=== PATIENT | female | born 1975 | race Caucasian/White ===

== ENCOUNTER 2017-05-09 11:31 | Observation (INO) | payer OTHER ==
[~2017-05-09] VITALS: Ht 167.6 cm; Wt 79.6 kg
[2017-05-09] MEDS ORDERED: LAMO10TA PO (11:47)
[2017-05-09] MEDS ORDERED: ZONI25CA2 PO ×2 (11:47→16:12)
[2017-05-09] MEDS ORDERED: VENL37.52 PO ×2 (11:47→16:12)
[2017-05-09] MEDS ORDERED: LEVO75TA4 PO (11:47)
[2017-05-09] MEDS ORDERED: AMBI12.52 PO ×2 (11:47→16:12)
[2017-05-09] MEDS ORDERED: ASPIRIN 81 MG CHEW TABLET PO ONE (12:45)
[2017-05-09] MEDS ORDERED: LABETALOL HCL 100 MG/20 ML VIAL IV STA (13:04)
[2017-05-09 13:27] LABS: BASO % 0.6 % (0.0-1.0); EOS # 0.2 K/mm3 (0.0-0.50); EOS % 3.1 % (0.0-3.0); LARGE UNSTAINED CELL # 0.2 K/mm3 (0.0-0.4); LARGE UNSTAINED CELL % 2.1 % (0.0-4.0); LYMPH # 2.5 K/mm3 (1.5-4.5); LYMPH % 29.5 % (24.0-44.0); MEAN CORPUSCULAR HEMOGLOBIN 30.2 pg (27.0-33.0); MEAN CORPUSCULAR HGB CONC 33.2 g/dl (32.0-36.5); MEAN CORPUSCULAR VOLUME 91.1 fl (80.0-96.0); MONO # 0.5 K/mm3 (0.0-0.8); MONO % 5.6 % (0.0-5.0); NEUTROPHILS # 4.7 K/mm3 (1.8-7.7); NEUTROPHILS % 59.1 % (36.0-66.0); PLATELET COUNT, AUTOMATED 301 k/mm3 (150-450); RED CELL DISTRIBUTION WIDTH 13.3 % (11.5-14.5); WHITE BLOOD COUNT 7.9 K/mm3 (4.0-10.0)
[2017-05-09 13:37] LABS: INR 0.88
[2017-05-09] MEDS: NITROGLYCERIN 0.4 MG SUBL TABLET SL PRN ×3 (13:43→14:39)
[2017-05-09] MEDS ORDERED: HEPARIN SOD (PORCINE) 5000 UNITS/ML VIAL SC SCH (14:00)
--- NOTE | 2017-05-09 14:00 | REP ---
PA and lateral chest: The lung bertrand are clear. The cardiac size is normal The lorelei, mediastinum, and bony thorax are unremarkable. Impression: Negative PA and lateral chest. Signed by Darron Sanders MD 05/09/2017 01:51 P
[2017-05-09 14:03] LABS: ANION GAP 8 MEQ/L (8-16); BLOOD UREA NITROGEN 7 MG/DL (7-18); CARBON DIOXIDE LEVEL 25 MEQ/L (21-32); CHLORIDE LEVEL 112 MEQ/L (98-107); CREATININE FOR GFR 0.79 MG/DL (0.55-1.02); GLOMERULAR FILTRATION RATE > 60.0 (>58); GLUCOSE, FASTING 84 MG/DL (70-105); POTASSIUM SERUM 4.2 MEQ/L (3.5-5.1); SODIUM LEVEL 145 MEQ/L (136-145)
[2017-05-09] MEDS ORDERED: ISOVUE-370 76% 100ML VIAL (Q9967) As Ordered ONE (14:22)
--- NOTE | 2017-05-09 15:03 | REP ---
CT of the chest, CT pulmonary angiography: There are no comparison CT studies. There are no emboli in the pulmonary trunk or central pulmonary arteries. There are no emboli in the lobe or segment branches. There are no infiltrates, effusions or masses. There is no mediastinal, hilar or axillary adenopathy. The thoracic aorta is unremarkable. Cardiac size is normal. There is no pericardial effusion. Upper abdomen: The visualized portions of the liver, gallbladder, pancreas, spleen and adrenals are unremarkable. Impression: There are no pulmonary emboli. Negative CT study of the chest. Signed by Darron Sanders MD 05/09/2017 02:55 P
[2017-05-09] MEDS ORDERED: ACETAMINOPHEN TAB 650MG DOSE (2X325MG) PO PRN (16:00)
[2017-05-09] MEDS ORDERED: LEVO75TA34 PO (16:12)
[2017-05-09] MEDS ORDERED: IMIT6INJ SC (16:12)
[2017-05-09] MEDS ORDERED: FISH1000 PO (16:12)
[2017-05-09] MEDS ORDERED: VITA10002 PO (16:12)
[2017-05-09] MEDS ORDERED: RITA30CA PO (16:12)
[2017-05-09] MEDS ORDERED: VITMTA PO (16:12)
[2017-05-09] MEDS ORDERED: IMIT100T PO (16:12)
[2017-05-09] MEDS ORDERED: LAMI25TA PO (16:12)
[2017-05-09] MEDS ORDERED: NAPR500T3 PO (16:12)
[2017-05-09] MEDS ORDERED: MAGN1TAB25 PO (16:12)
[2017-05-09] MEDS ORDERED: HYDR-3713 PO (16:12)
[2017-05-09] MEDS ORDERED: VENL150C43 PO (16:12)
[2017-05-09] MEDS ORDERED: NAPROXEN 250 MG TAB PO PRN (16:30)
[2017-05-09] MEDS ORDERED: SUMAtriptan SUCCINATE 6 MG/0.5 ML VIAL SC PRN (16:30)
[2017-05-09 20:10] VITALS: BP 186/100
[2017-05-09 20:13] VITALS: BP 187/99
[2017-05-09] MEDS: NORCO, ANEXSIA 5/325MG TABLET (HYDROcodone/ACETAMINOPHEN) PO PRN (20:17)
[2017-05-09 20:27] VITALS: BP 187/99; PULSE 68
[2017-05-09] MEDS ORDERED: amLODIPine 5 MG TAB PO ONE (20:30)
--- NOTE | 2017-05-09 21:47 | HPE ---
DATE OF ADMISSION: 05/09/2017 CHIEF COMPLAINT: 42-year-old female coming in complaining of chest pain for 1 week that is pressure like. The patient was noted to be hypertensive. HISTORY OF PRESENT ILLNESS: This is a 42-year-old female with significant past medical history of having been treated for hypertension in the past with metoprolol 50 mg once a day, who was able to get off her medication 1 year ago due to controlled blood pressure, with comorbidities of migraine, hypothyroidism, depression, and insomnia, who presented complaining of chest pain for 1 week in duration. Patient states chest pain is centrally located radiating to the left side and the jaw, more pressure-like, associated with shortness of breath, worse with exertion, but still present at rest. Patient denies of any fever, chills, cough, sputum production, abdominal pain, diarrhea, or dysuria associated with this as well. Patient complained of headache but she has history of migraine and it is unchanged. Patient denies of any change in medication other than previously mentioned of stopping metoprolol due to her blood pressure normalizing. Denies of any blurry vision or dizziness. Patient states that eating does not change her chest pressure. Normally does not see any custom bike builder as an outpatient. Patient saturated well on room air, above 90% in the emergency room, but was noted to have severe blood pressure, 190/119, received three nitroglycerin and 10 mg of metoprolol in the emergency room with a good result. REVIEW OF SYSTEMS: Ten point review of systems negative other than those described in the history of present illness (HPI). PAST MEDICAL HISTORY: Significant for: 1. Hypertension. Currently off of all of her medication. 2. Hypothyroidism. 3. Migraine. 4. Depression. 5. Insomnia. SURGICAL HISTORY: Includes: 1. section. 2. Tonsillectomy. 3. Appendectomy. 4. She did have a kidney stone history as well status post stent, but that stent was removed. 5. History of lithotripsy in the past. SOCIAL HISTORY: Patient denies of smoking, drinking, or drug abuse. FAMILY MEDICAL HISTORY: Unknown due to being adopted. ALLERGIES: Patient has no known drug allergy. HOME MEDICATIONS: Are as follows: - acetaminophen/hydrocodone 5/325 one tablet every 6 hours as needed for pain - vitamin B12 1000 mcg by mouth daily - fish oil 1000 mg by mouth daily - Lamictal 50 mg by mouth daily - levothyroxine 75 mcg by mouth daily - multivitamin one tablet by mouth daily - naproxen 50 mg by mouth twice a day as needed for migraine - Imitrex 6 mg subcutaneous daily as needed for migraine - sumatriptan (Imitrex) 100 mg by mouth twice a day for migraine as well - Effexor XR 37.5 mg by mouth daily - Effexor XR 150 mg by mouth daily - Ambien 12.5 mg by mouth nightly - zonisamide 25 mg by mouth nightly PHYSICAL EXAMINATION: Temperature is 97.4, heart rate of 88, respiratory rate of 16, blood pressure is 177/132, saturating 100% on room air initially, but as per the emergency room patient had a blood pressure of 190/119, last heart rate of 56, blood pressure is 147/81, saturating 98% on room air, respiratory rate of 16. HEENT: Normocephalic. No trauma noted. Inspection of the eyes, nose, and throat is within normal. Pupils equal, round, and reactive to light and accommodation. Mucous is moist. Neck is supple. No tracheal deviation. CARDIAC: S1, S2, regular rate and rhythm. Pulses present. LUNGS: Equal air entry. Did not hear any wheezes, rales, or rhonchi. ABDOMEN: Soft, nontender. Bowel sounds present. LOWER EXTREMITIES: No significant pitting edema. Capillary refill present in all four extremities. SKIN: Is intact, warm to touch, afebrile. The patient is currently awake, alert and oriented times three. Cranial nerves grossly intact. Motor and sensory is intact. Normal mood and affect for current situation. DIAGNOSTIC STUDIES: Patient had an EKG showing a heart rate of 88, sinus, no ST elevation. DIAGNOSTIC LABORATORY STUDIES: Patient had a WBC, hemoglobin and hematocrit , and platelet all within normal. Basic metabolic profile is within normal except for chloride of 112. Cardiac enzymes so far have been negative. BNP is within normal. TSH is within normal as well. Coagulation studies: INR and PTT is within normal, PT of 12. Patient also had a chest x-ray, as per radiology, that showed negative posteroanterior (PA) and lateral chest. Patient also had a CT angiogram of the chest which showed, as per radiology, no pulmonary emboli. Negative CT study of the chest. ASSESSMENT AND PLAN: This is a 42-year-old female with significant past medical history of hypertension utilizing metoprolol once a day, but stopped using roughly a year ago due to normalization of her blood pressure, hypothyroidism, migraine, depression, chronic pain, insomnia, who presents complaining of chest pain for 1 week, noted to be hypertensive, admitted for hypertensive urgency. 1. Hypertensive urgency. Patient to be placed on telemetry. Will obtain serial cardiac enzymes. Urinalysis and urine culture for further evaluation. In addition, echocardiogram to further evaluate for any ventricular hypertrophy. Will utilize metoprolol with parameters and consult Dr. Lopez as this case was discussed with him in the emergency room. Further evaluation and recommendation by Dr. Lopez greatly appreciated. 2. Hypothyroidism. TSH is within normal, resume her levothyroxine. 3. Chronic pain and migraine. Resume home regimen including the lamotrigine, zonisamide, sumatriptan, naproxen as needed, and [place] as needed as well. 4. Depression. Resume venlafaxine home regimen. 5. Insomnia. Resume home Ambien regimen. 6. Deep venous thrombosis (DVT) prophylaxis.
[2017-05-09] MEDS: ZONISAMIDE 25 MG CAP (ZONEGRAN) PO SCH (22:31)
[2017-05-09] MEDS: HEPARIN SOD (PORCINE) 5000 UNITS/ML VIAL SC SCH (22:31)
[2017-05-09] MEDS: zolPIDEM CR 6.25MG TABLET (AMBIEN CR) PO SCH (22:31)
[2017-05-09 22:41] VITALS: BP_SYST 161; BP_DIAS 70; BP_DIAS 78
[2017-05-09 23:30] VITALS: PULSE 74
[2017-05-09 23:59] VITALS: BP 169/89
[2017-05-10] VITALS (10 sets, daily range): BP systolic 124–183; BP diastolic 84–115; PULSE 78–107
[2017-05-10] MEDS: LEVOTHYROXINE 75MCG TABLET (0.075MG) PO SCH (05:02)
[2017-05-10] MEDS: NORCO, ANEXSIA 5/325MG TABLET (HYDROcodone/ACETAMINOPHEN) PO PRN ×3 (05:02→21:52)
[2017-05-10] MEDS: HEPARIN SOD (PORCINE) 5000 UNITS/ML VIAL SC SCH ×3 (05:03→20:37)
[2017-05-10] MEDS: lamoTRIgine 25 MG TAB PO SCH (08:44)
[2017-05-10] MEDS: VENLAFAXINE **XR** 75MG CAPSULE PO SCH (08:44)
[2017-05-10] MEDS: CYANOCOBALAMIN 500 MCG TAB PO SCH (08:44)
[2017-05-10] MEDS: MULTIVITAMINS/MINERALS THERAP 1 TAB PO SCH (08:45)
[2017-05-10] MEDS: ASPIRIN 81 MG ENTERIC TAB PO SCH (08:45)
[2017-05-10] MEDS: METOPROLOL SUCC *XL* 25MG TAB (TopROL *XL*) PO SCH (08:46)
[2017-05-10] MEDS: VENLAFAXINE **XR** 37.5 MG CAPSULE PO SCH (08:52)
[2017-05-10] MEDS ORDERED: ONDANSETRON 4MG/2ML VIAL (J2405) As Ordered ONE (10:12)
[2017-05-10] MEDS ORDERED: ONDANSETRON 4MG/2ML VIAL (J2405) IV ONE (10:15)
[2017-05-10] MEDS ORDERED: ALPRAZolam 0.25 MG TAB PO PRN (10:30)
[2017-05-10] MEDS ORDERED: ONDANSETRON 4MG/2ML VIAL (J2405) IV PRN (10:30)
--- NOTE | 2017-05-10 10:33 | ECGEPIP ---
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
[2017-05-10] MEDS: SUMAtriptan SUCCINATE 25 MG TAB PO PRN (12:39)
[2017-05-10] MEDS ORDERED: amLODIPine 5 MG TAB PO ONE ×2 (12:45→16:30)
[2017-05-10] MEDS ORDERED: ATORVASTATIN 20 MG TAB PO ONE (15:15)
[2017-05-10] MEDS: NITROGLYCERIN 0.4 MG SUBL TABLET SL PRN ×2 (15:22→15:29)
--- NOTE | 2017-05-10 15:29 | IPNPDOC ---
Text Note Date of Service The patient was seen on 05/10/17. NOTE Subjective: Patient states she does have some residual left-sided chest pain that's pressure-like, 6 out of 10, radiating to the neck. States that chest pain initially started week ago with exertion while she was walking up a help. Pain is nonreproducible, occasionally pleuritic. Non-positional. Objective: Vitals: (see below) General: No acute distress, laying comfortably in bed. HEENT: Moist mucous membranes. Neck: No JVD or lymphadenopathy Cardiac: RRR, No murmurs Pulm: Clear to auscultation b/l. No wheezing, rhonchi Abd: NT/ND + BS Ext: No edema or cyanosis Labs (see below) Images: CTA chest on 05/09/17 negative for PE. EKG on 05/09/17 normal sinus rhythm within normal limits. Assessment/Plan 1. Hypertensive urgency- patient has been off of her blood pressure medications for the past week. Her blood pressure was better controlled this morning. We' ll continue the patient on amlodipine. 2. Atypical chest pain- Still has residual pain. States last hours at a time. Since admission, her EKG is normal sinus rhythm within normal limits. Her cardiac enzymes have been negative 3. She is continued on aspirin, beta julianna , statin. Does have anxiety which patient states precipitates the pain. I have spoken to Dr. Lopez, who recommends monitoring the patient for blood pressure remained stable, and her EKG remains unchanged, to discharge the patient for outpatient follow-up with him in the office. 3. Hypothyroidism continue Synthroid 4. Chronic pain/migraines- continue home meds 5. History of depression- continue home meds. The patient's psychiatrist has called the nursing staff and left a message. I tried to contact him however awaiting callback. 6. Insomnia- continue Ambien DVT prophy: Heparin subcutaneous VS,Fishbone, I+O VS, Fishbone, I+O Vital Signs Date Time Temp Pulse Resp B/P (MAP) Pulse Ox O2 Delivery O2 Flow Rate FiO2 05/10/17 13:19 72 177/100 05/10/17 12:00 97.5 18 98 Room Air I&O- Last 24 Hours up to 6 AM 05/10/17 06:00 Intake Total 180 ml Output Total 900 ml Balance -720 ml ABED,IRENE MD May 10, 2017 15:29
[2017-05-10 17:56] LABS: ANION GAP 9 MEQ/L (8-16); BLOOD UREA NITROGEN 7 MG/DL (7-18); CALCIUM LEVEL 9.4 MG/DL (8.5-10.1); CARBON DIOXIDE LEVEL 24 MEQ/L (21-32); CHLORIDE LEVEL 109 MEQ/L (98-107); CREATININE FOR GFR 0.82 MG/DL (0.55-1.02); GLOMERULAR FILTRATION RATE > 60.0 (>58); GLUCOSE, FASTING 91 MG/DL (70-105); MAGNESIUM LEVEL 2.2 MG/DL (1.8-2.4); SODIUM LEVEL 142 MEQ/L (136-145)
[2017-05-10] MEDS: zolPIDEM CR 6.25MG TABLET (AMBIEN CR) PO SCH (20:37)
[2017-05-10] MEDS: ZONISAMIDE 25 MG CAP (ZONEGRAN) PO SCH (20:38)
[2017-05-11 00:39] VITALS: BP 122/85
[2017-05-11] MEDS: NORCO, ANEXSIA 5/325MG TABLET (HYDROcodone/ACETAMINOPHEN) PO PRN (04:37)
[2017-05-11 05:03] VITALS: BP 137/92
[2017-05-11] MEDS: HEPARIN SOD (PORCINE) 5000 UNITS/ML VIAL SC SCH (06:30)
[2017-05-11] MEDS: LEVOTHYROXINE 75MCG TABLET (0.075MG) PO SCH (06:31)
--- NOTE | 2017-05-11 07:13 | ECHO ---
DATE OF PROCEDURE: 05/10/2017 REFERRING PHYSICIAN: Tayler Howard. INDICATION: Chest pain. HEIGHT: 66 inches. WEIGHT: 175 pounds. DIMENSION: IVS: 1.0 LV: 3.5 LVPW: 1.0 LA: 3.4 Aorta: 3.1 Ascending aorta: 2.8 RV: 2.2 LV systolic: 2.5 FINDINGS: The study is of acceptable technical quality. Left ventricle is normal size and systolic function with overall EF estimated at 60-65%. Right ventricle is also normal size and systolic function. Both atria appear normal. All four cardiac valves were reasonably well seen and appear normal. No pericardial effusion is noted. Inferior vena cava is normal size. Aortic root and aortic arch appear normal. Abdominal aorta was not visualized. Doppler interrogation reveals no aortic disease. There is trace mitral and trace tricuspid and pulmonic insufficiency. Estimated pulmonary artery pressure is within normal limits. Mitral inflow pattern and tissue Doppler imaging of mitral annulus reveal normal diastolic functional left ventricle. CONCLUSIONS: 1. Study is of acceptable technical quality. 2. Normal LV size, systolic and diastolic function. 3. No significant valvular disease. 4. Normal central venous pressure and likely normal pulmonary artery pressure. COMMENT: Subacute bacterial endocarditis (SBE) prophylaxis is not recommended. Essentially normal echocardiogram.
[2017-05-11 07:15] VITALS: BP 128/80
[2017-05-11 08:12] LABS: MEAN CORPUSCULAR HEMOGLOBIN 29.8 pg (27.0-33.0); MEAN CORPUSCULAR HGB CONC 32.5 g/dl (32.0-36.5); RED CELL DISTRIBUTION WIDTH 13.3 % (11.5-14.5); WHITE BLOOD COUNT 7.4 K/mm3 (4.0-10.0)
[2017-05-11 08:56] LABS: ANION GAP 9 MEQ/L (8-16); BLOOD UREA NITROGEN 11 MG/DL (7-18); CALCIUM LEVEL 8.7 MG/DL (8.5-10.1); CARBON DIOXIDE LEVEL 24 MEQ/L (21-32); CHLORIDE LEVEL 109 MEQ/L (98-107); GLOMERULAR FILTRATION RATE > 60.0 (>58); GLUCOSE, FASTING 102 MG/DL (70-105); MAGNESIUM LEVEL 2.3 MG/DL (1.8-2.4); POTASSIUM SERUM 3.7 MEQ/L (3.5-5.1); SODIUM LEVEL 142 MEQ/L (136-145)
[2017-05-11] MEDS ORDERED: amLODIPine 10 MG TAB PO SCH (09:00)
[2017-05-11] MEDS ORDERED: amLODIPine 5 MG TAB PO SCH (09:00)
[2017-05-11] MEDS ORDERED: ATORVASTATIN 20 MG TAB PO SCH (09:00)
[2017-05-11] MEDS: SUMAtriptan SUCCINATE 25 MG TAB PO PRN (09:14)
[2017-05-11] MEDS: VENLAFAXINE **XR** 37.5 MG CAPSULE PO SCH (09:26)
[2017-05-11] MEDS: ASPIRIN 81 MG ENTERIC TAB PO SCH (09:26)
[2017-05-11] MEDS: lamoTRIgine 25 MG TAB PO SCH (09:27)
[2017-05-11] MEDS: VENLAFAXINE **XR** 75MG CAPSULE PO SCH (09:27)
[2017-05-11] MEDS: CYANOCOBALAMIN 500 MCG TAB PO SCH (09:28)
[2017-05-11] MEDS: MULTIVITAMINS/MINERALS THERAP 1 TAB PO SCH (09:28)
[2017-05-11] MEDS: METOPROLOL SUCC *XL* 25MG TAB (TopROL *XL*) PO SCH (09:34)
--- NOTE | 2017-05-11 11:14 | REP ---
CT Head without contrast HISTORY: Headache COMPARISON: None There is no intraparenchymal hemorrhage, acute infarct, mass or midline shift. The ventricular system is normal in appearance. There is no extra cerebral collection. There is no fracture. The visualized sinuses are clear. IMPRESSION: There is no intracranial lesion. Signed by Narciso Adams MD 05/11/2017 11:04 A
[2017-05-11 11:59] LABS: CONTROL LINE HCG INT CTR LINE PRESENT
[2017-05-11 12:00] VITALS: BP 144/99
[2017-05-11] MEDS ORDERED: METO1TAB32 PO (12:08)
[2017-05-11] MEDS ORDERED: AMLO10TA2 PO (12:08)
[2017-05-11 12:19] VITALS: BP 144/99
[2017-05-11 13:00] VITALS: BP 157/99
--- NOTE | 2017-05-11 16:26 | DS.PDOC ---
Discharge Summary General Date of Admission May 09, 2017 at 16:28 Date of Discharge 05/11/17 Attending Physician: IRENE RUSSELL MD Discharge Summary PROCEDURES PERFORMED DURING STAY: None. ADMITTING/DISCHARGE DIAGNOSES: 1. Hypertensive urgency 2. Atypical chest pain 3. Chronic migraines 4. Depression/PTSD/anxiety 5. H/o Hypothyroidism COMPLICATIONS/CHIEF COMPLAINT: Chest Pain, Hypertensive Urgency. HISTORY OF PRESENT ILLNESS/HOSPITAL COURSE: This is a 42-year-old female past medical history of depression/PTSD/anxiety/ chronic migraines who presents complaining of chest pain. Patient notes that she's had a history of hypertension and had since been taken off her blood pressure medications a year ago as her blood pressure was stable outpatient. Patient was found to be in hypertensive urgency on presentation to the ED and has since had her blood pressure better controlled. Patient did have a few episodes of chest pain which she described as pressure-like, radiating to the neck. Patient is very anxious at times when her blood pressure was elevated. Over the course of hospitalization, patient's EKGs have been normal sinus rhythm within normal limits. Her cardiac troponins have been negative. I did discuss with Dr. Lopez recommended discharging the patient if her chest pain has resolved and he will be glad to follow-up with her soon in the clinic for further workup. During the course of his admission, patient was noted to be taking Ritalin which was prescribed by her psychiatrist for lethargy. This has since been discontinued and the patient should stay off of it as it does increase her risk of getting a stroke and heart attack. Patient also needs to to hold off on taking sumatriptan for her migraines until she follows up with her b2b sales manager and has workup for this atypical chest pain. It is likely that her chest pain is related to her uncontrolled hypertension. She will need to echocardiogram and stress test with her b2b sales manager. Patient's is hemodynamically stable. She did have an episode of migraines which typically originates in her cervical spine given her disc bulge. Patient has been following up closely with a spine surgeon as well as a neurologist, and should continue to do so. She has no neurologic deficits. Her chest pain at this time has resolved. Her headache is much improved. She has no neurologic deficits. DISCHARGE MEDICATIONS: Please see below. ALLERGIES: Please see below. PHYSICAL EXAMINATION ON DISCHARGE: Vitals: (see below) General: No acute distress, laying comfortably in bed. HEENT: Moist mucous membranes. Neck: No JVD or lymphadenopathy Cardiac: RRR, No murmurs Pulm: Clear to auscultation b/l. No wheezing, rhonchi Abd: NT/ND + BS Ext: No edema or cyanosis Neuro: Strength 5/5 BUE and BLE. CN 2-12 intact. F to N intact Negative pronator drift. Negative [place]. LABORATORY DATA: Please see below. IMAGING: CTA chest on 05/09/17 negative for PE. EKG on 05/09/17 normal sinus rhythm within normal limits. CT head without contrast 05/11/17 negative for acute findings. PROGNOSIS: Fair ACTIVITY: As tolerated. DIET: Low-sodium DISCHARGE PLAN/DISPOSITION: 01 Home, Self-Care. DISCHARGE INSTRUCTIONS: 1. Follow-up with PCP in 1-2 weeks. Patient will need to be referred to a b2b sales manager by their primary care physician. I did discuss case with Dr. Lopez who is aware of the patient and will be glad to see them soon outpatient. Patient also needs to follow-up with her psychiatrist. DISCHARGE CONDITION: Stable. TIME SPENT ON DISCHARGE: Greater than 30 minutes. Vital Signs/I&Os Vital Signs Date Time Temp Pulse Resp B/P (MAP) Pulse Ox O2 Delivery O2 Flow Rate FiO2 05/11/17 13:00 157/99 (118) 05/11/17 12:19 83 05/11/17 12:00 97.0 18 100 05/11/17 08:00 Room Air I&O- Last 24 Hours up to 6 AM 05/11/17 06:00 Intake Total 740 ml Output Total 1250 ml Balance -510 ml Laboratory Data Labs 24H Laboratory Tests 2 05/10/17 17:09: Anion Gap 9, Glomerular Filtration Rate > 60.0, Blood Urea Nitrogen 7, Creatinine 0.82, Sodium Level 142, Potassium Level 4.0, Chloride Level 109H, Carbon Dioxide Level 24, Calcium Level 9.4, Total Creatine Kinase 71, Magnesium Level 2.2, Creatine Kinase MB 1.0, Creatine Kinase MB Relative Index 1.40, Troponin I < 0.02 05/11/17 07:50: Anion Gap 9, Glomerular Filtration Rate > 60.0, Blood Urea Nitrogen 11#, Creatinine 0.70, Sodium Level 142, Potassium Level 3.7, Chloride Level 109H, Carbon Dioxide Level 24, Calcium Level 8.7, Total Creatine Kinase 56, Magnesium Level 2.3, Creatine Kinase MB 1.0, Creatine Kinase MB Relative Index 1.78, Troponin I < 0.02, Human Chorionic Gonadotropin, Qual NEGATIVE CBC/BMP Laboratory Tests 05/10/17 17:09 Calcium Level 9.4, Total Creatine Kinase 71 05/11/17 07:50 Calcium Level 8.7, Total Creatine Kinase 56, Red Blood Count 4.57, Mean Corpuscular Volume 92.0, Mean Corpuscular Hemoglobin 29.8, Mean Corpuscular Hemoglobin Concent 32.5, Red Cell Distribution Width 13.3 Microbiology Microbiology 05/09/17 Urine Culture, Received Pending Discharge Medications Scheduled Amlodipine Besylate (Amlodipine Besylate) 10 Mg Tab, 10 MG PO DAILY Cyanocobalamin (Vitamin B-12) 1,000 Mcg Tab, 1,000 MCG PO DAILY, (Reported) Fish Oil (Fish Oil) 1,000 Mg Cap, 1,000 MG PO DAILY, (Reported) Lamotrigine (Lamictal) 25 Mg Tab, 50 MG PO DAILY, (Reported) Levothyroxine Sodium (Levoxyl) 75 Mcg Tab, 75 MCG PO DAILY, (Reported) Magnesium Oxide (Magnesium) 400 Mg Tab, 400 MG PO DAILY, (Reported) Metoprolol Succinate (Metoprolol Succinate ER) 25 Mg Tab, 25 MG PO QAM Multivitamins *[facility] STOCKED* (Thera M Plus *[facility] STOCKED*) 1 Tab Tab, 1 TAB PO DAILY, (Reported) Venlafaxine HCl (Venlafaxine HCl ER) 37.5 Mg Cap, 37.5 MG PO DAILY, (Reported) 187.5MG TOTAL DAILY Venlafaxine Hydrochloride (Venlafaxine HCl ER) 150 Mg Cap, 150 MG PO DAILY, ( Reported) 187.5MG TOTAL DAILY Zolpidem Tartrate (Ambien Cr) 12.5 Mg Tab, 12.5 MG PO QHS, (Reported) Zonisamide (Zonisamide) 25 Mg Cap, 25 MG PO QHS, (Reported) Scheduled PRN Acetaminophen/Hydrocodone (Hydrocodone/Acetaminophen 5-325 mg) 1 Tab Tab, 1 TAB PO Q6H PRN for PAIN, (Reported) Naproxen (Naproxen) 500 Mg Tab, 500 MG PO BID PRN for MIGRAINE, (Reported) Sumatriptan Succinate (Imitrex) 6 Mg/0.5 Ml Inj, 6 MG SC DAILY PRN for MIGRAINE, (Reported) Allergies Coded Allergies: No Known Drug Allergy (Verified Allergy, Unknown, 05/09/17) IRENE RUSSELL MD May 11, 2017 16:26
--- NOTE | 2017-05-11 22:00 | ECGEPIP ---
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
--- NOTE | 2017-05-11 22:36 | ECGEPIP ---
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
--- NOTE | 2017-05-11 22:45 | ECGEPIP ---
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
[2017-07-22] MEDS ORDERED: AMBI12.52 PO (08:52)
== END 2017-05-11 14:09 | disposition home or self-care (01) ==
LOC: M ED 11:31 → M ED INP 16:28 → M PCU 19:57
PROVIDERS: ADMIT Internal Medicine; ATTEND Internal Medicine
DX: I16.0 Hypertensive urgency (principal); R07.89 Other chest pain; G43.709 Chronic migraine without aura, not intractable, without status migrainosus; F32.9 Major depressive disorder, single episode, unspecified; F43.10 Post-traumatic stress disorder, unspecified; F41.9 Anxiety disorder, unspecified; E03.9 Hypothyroidism, unspecified; R06.02 Shortness of breath; G89.29 Other chronic pain; M50.20 Other cervical disc displacement, unspecified cervical region; G47.09 Other insomnia; Z79.899 Other long term (current) drug therapy
CPT/HCPCS: 36415; 70450; 71020; 71275; 80048; 81001; 82550; 82553; 83735; 83880; 84443; 84703; 85025; 85027; 85610; 85730; 87088; 87186; 93005; 93041; 93306; 94760; 96372; 96374; 96375; 99285; J2405; Q9967

== ENCOUNTER → 2017-06-20 | Outpatient (REF) | payer OTHER ==
[~2017-06-20] MED LIST: AMBI12.52 PO; AMLO10TA2 PO; CLON0.5T; FISH1000 PO; FLUO20CA19 PO; HYDR-3713 PO; IMIT100T PO; IMIT6INJ SC; LAMI25TA PO; LAMO10TA PO; LAMO200T PO; LEVO75TA34 PO; LEVO75TA4 PO; LOSA25TA8 PO; MAGN1TAB25 PO; METO1TAB32 PO; NAPR500T3 PO; OMEP40CA2 PO; RITA30CA PO; VENL150C43 PO; VENL37.52 PO; VITA10002 PO; VITMTA PO; ZOFR4TAB3 PO; ZOLP5TAB PO; ZONI25CA2 PO
== END ==
LOC: M LAB REF 09:03
PROVIDERS: ATTEND Physician Assistant
DX: N39.0 Urinary tract infection, site not specified (principal)

== ENCOUNTER → 2017-07-07 | Outpatient (CLI) | payer OTHER ==
[2017-07-07 17:48] LABS: BASO # 0.1 10^3/uL (0.0-0.2); BASO % 0.5 % (0.0-1.0); EOS # 0.1 10^3/uL (0.0-0.50); IMMATURE GRANULOCYTE % 0.3 % (0-0); LYMPH # 2.5 10^3/uL (1.5-4.5); MEAN CORPUSCULAR HEMOGLOBIN 30.1 pg (27.0-33.0); MEAN CORPUSCULAR HGB CONC 32.1 g/dl (32.0-36.5); MEAN CORPUSCULAR VOLUME 93.6 fl (80.0-96.0); MONO % 11.3 % (0.0-5.0); NEUTROPHILS # 8.8 10^3/uL (1.8-7.7); NEUTROPHILS % 67.9 % (36.0-66.0); PLATELET COUNT, AUTOMATED 429 10^3/uL (150-450); RED CELL DISTRIBUTION WIDTH 13.6 % (11.5-14.5)
[2017-07-07 17:52] LABS: ADD MORPHOLOGY? NO; MONO # 1.5 10^3/uL (0.0-0.8)
[2017-07-07 18:00] LABS: ALKALINE PHOSPHATASE 79 U/L (45-117); ALT/SGPT 19 U/L (12-78); ANION GAP 12 MEQ/L (8-16); AST/SGOT 8 U/L (15-37); BLOOD UREA NITROGEN 8 MG/DL (7-18); CALCIUM LEVEL 9.2 MG/DL (8.5-10.1); CARBON DIOXIDE LEVEL 23 MEQ/L (21-32); CHLORIDE LEVEL 106 MEQ/L (98-107); CREATININE FOR GFR 0.82 MG/DL (0.55-1.02); GLOMERULAR FILTRATION RATE > 60.0 (>58); GLUCOSE, FASTING 83 MG/DL (70-105); POTASSIUM SERUM 4.2 MEQ/L (3.5-5.1); SODIUM LEVEL 141 MEQ/L (136-145)
[2017-07-07 18:01] LABS: ALBUMIN 3.2 GM/DL (3.2-5.2); BILIRUBIN,TOTAL 0.3 MG/DL (0.2-1.0); TOTAL PROTEIN 7.2 GM/DL (6.4-8.2)
== END ==
LOC: M WUC 14:57
PROVIDERS: ATTEND Physician Assistant
DX: N39.0 Urinary tract infection, site not specified (principal)

== ENCOUNTER 2017-07-09 17:31 | Day surgery (SDC) | payer OTHER ==
[~2017-07-09] VITALS: Ht 15.2 cm; Wt 87.7 kg
[~2017-07-09 17:31] MED LIST changes: -CLON0.5T; -FLUO20CA19 PO; -LAMO200T PO; -LOSA25TA8 PO; -OMEP40CA2 PO; -ZOFR4TAB3 PO; -ZOLP5TAB PO
[2017-07-09] MEDS ORDERED: FLUO20CA19 PO (17:41)
[2017-07-09] MEDS ORDERED: LOSA25TA8 PO (17:41)
[2017-07-09] MEDS ORDERED: CLON0.5T (17:41)
[2017-07-09] MEDS ORDERED: MORPHINE 4 MG/ML 1ML SYRINGE IV ONE (18:45)
[2017-07-09] MEDS ORDERED: ONDANSETRON 4MG/2ML VIAL (J2405) IV ONE ×2 (18:45→22:15)
[2017-07-09 19:23] LABS: BASO # 0.1 10^3/uL (0.0-0.2); BASO % 0.5 % (0.0-1.0); EOS # 0.3 10^3/uL (0.0-0.50); EOS % 2.7 % (0.0-3.0); IMMATURE GRANULOCYTE % 0.4 % (0-0); LYMPH # 3.2 10^3/uL (1.5-4.5); LYMPH % 29.1 % (24.0-44.0); MEAN CORPUSCULAR HEMOGLOBIN 30.1 pg (27.0-33.0); MEAN CORPUSCULAR HGB CONC 32.5 g/dl (32.0-36.5); MEAN CORPUSCULAR VOLUME 92.7 fl (80.0-96.0); MONO # 0.9 10^3/uL (0.0-0.8); MONO % 8.6 % (0.0-5.0); NEUTROPHILS # 6.4 10^3/uL (1.8-7.7); NEUTROPHILS % 58.7 % (36.0-66.0); PLATELET COUNT, AUTOMATED 433 10^3/uL (150-450); RED CELL DISTRIBUTION WIDTH 13.2 % (11.5-14.5); WHITE BLOOD COUNT 10.8 10^3/uL (4.0-10.0)
[2017-07-09 19:41] LABS: ANION GAP 9 MEQ/L (8-16); BLOOD UREA NITROGEN 10 MG/DL (7-18); CALCIUM LEVEL 8.6 MG/DL (8.5-10.1); CARBON DIOXIDE LEVEL 22 MEQ/L (21-32); CHLORIDE LEVEL 109 MEQ/L (98-107); GLOMERULAR FILTRATION RATE > 60.0 (>58); GLUCOSE, FASTING 82 MG/DL (70-105); POTASSIUM SERUM 3.8 MEQ/L (3.5-5.1); SODIUM LEVEL 140 MEQ/L (136-145)
[2017-07-09] MEDS ORDERED: HYDROmorphone HCL 1 MG/ML SYRINGE (J1170) IV ONE ×2 (20:15→22:15)
[2017-07-09] MEDS ORDERED: KETOROLAC 30 MG/ML VIAL (J1885) IV ONE (20:15)
[2017-07-09 21:15] LABS: CONTROL LINE UCG INT CTR LINE PRESENT
--- NOTE | 2017-07-09 21:50 | REPUSA ---
CT of the abdomen and pelvis without contrast Clinical statement: Pain. Technique: Multiple axial CT images were obtained from the base of the lungs to the floor of the pelv is utilizing 5 mm axial slices without administration of contrast. Coronal and sagittal reconstructio ns were also obtained. No comparison is available. Findings: Chest: The visualized lung bases are clear. Abdomen: The kidneys are normal in size bilaterally. There is moderate right-sided hydronephrosis and hydroureter. A 5 mm obstructing stone is seen in the mid right ureter. The liver, spleen, pancreas, gallbladder and adrenal glands are unremarkable. The aorta demonstrates normal caliber and contour. T here is no abdominal lymphadenopathy or ascites. Pelvis: The bowel is unremarkable, with no obstructive or inflammatory changes. The urinary bladder i s within normal limits. There is no pelvic lymphadenopathy or ascites. The other pelvic structures ap pear unremarkable. Bones: There are no suspicious osseous abnormalities seen. Impression: Moderate right-sided hydronephrosis and hydroureter caused by 5 mm obstructing stone in t he mid right ureter.
[2017-07-09] MEDS ORDERED: ZOLP5TAB PO (23:52)
[2017-07-09] MEDS ORDERED: METO1TAB32 PO (23:52)
[2017-07-09] MEDS ORDERED: LAMO200T PO (23:52)
[2017-07-09] MEDS ORDERED: AMLO10TA2 PO (23:52)
[2017-07-10] VITALS (7 sets, daily range): BP systolic 108–169; BP diastolic 62–90
[2017-07-10] MEDS ORDERED: HYDROmorphone HCL 1 MG/ML SYRINGE (J1170) As Ordered ONE (01:00)
[2017-07-10] MEDS ORDERED: HYDROmorphone HCL 1 MG/ML SYRINGE (J1170) IV ONE (01:00)
[2017-07-10] MEDS: ONDANSETRON 4MG/2ML VIAL (J2405) IV PRN ×2 (02:59→10:16)
[2017-07-10] MEDS: MORPHINE 2 MG/ML 1ML SYRINGE IV PRN ×2 (03:00→06:43)
[2017-07-10] MEDS: CIPROFLOXACIN 400 MG in APPROPRIATE DILUENT 1 EA IV SCH ×2 (03:00→14:30)
[2017-07-10] MEDS: D5W/0.45% SODIUM CHLORIDE 1,000 ML IV SCH ×2 (03:02→13:15)
[2017-07-10] MEDS: oxyCODONE 5MG TAB PO PRN ×2 (04:18→10:16)
[2017-07-10] MEDS ORDERED: LEVOTHYROXINE 75MCG TABLET (0.075MG) PO SCH (06:00)
[2017-07-10] MEDS ORDERED: METOPROLOL SUCC *XL* 25MG TAB (TopROL *XL*) PO SCH (09:00)
[2017-07-10] MEDS ORDERED: amLODIPine 10 MG TAB PO SCH (09:00)
[2017-07-10] MEDS ORDERED: FLUoxetine 20 MG CAP PO SCH (09:00)
[2017-07-10] MEDS ORDERED: LOSARTAN 25 MG TAB PO SCH (09:00)
[2017-07-10] MEDS ORDERED: lamoTRIgine 25 MG TAB PO SCH (09:00)
[2017-07-10] MEDS ORDERED: PROMETHAZINE INJ 25 MG/ML VIAL (J2550) IV PRN (12:30)
[2017-07-10] MEDS ORDERED: KETOROLAC 30 MG/ML VIAL (J1885) IV ONE (12:30)
[2017-07-10] MEDS ORDERED: MIDAZOLAM INJ 2 MG/2 ML VIAL (J2250) As Ordered ONE (14:06)
[2017-07-10] MEDS ORDERED: fentaNYL 100 MCG/2 ML INJECTION (J3010) As Ordered ONE (14:06)
[2017-07-10] MEDS ORDERED: CONRAY-60 60% 50ML VIAL (Q9961) As Ordered ONE (14:08)
[2017-07-10] MEDS ORDERED: CIPROFLOXACIN/D5W 400 MG/200 ML BAG (J0744) As Ordered ONE (14:22)
--- NOTE | 2017-07-10 14:44 | HPEPDOC ---
General Date of Admission 07/09/17 Attending Physician: MELINDA FLOWER MD Chief Complaint The patient is a 42-year-old female admitted with a reason for visit of R Ureteral Stone. History of Present Illness The patient is a 42-year-old female who presented to [facility] ER c/o right flank pain. A CT scan was performed and demonstrated A 5 mm obstructing stone is seen in the mid right ureter. The physicians in the ER attempted to get the pain under control with analgesics in hopes of discharging Mrs. Lozoya for a trial of passage with medical expulsive therapy. However, they were unable to control her pain, even using IV medications. In addition, Mrs. Lozoya was having notable N/V. The urology service was consulted and a decision was made to admit her for same day care with planned surgical intervention for the stone. Home Medications Scheduled Amlodipine Besylate (Amlodipine Besylate) 10 Mg Tab, 10 MG PO DAILY, (Reported) Cyanocobalamin (Vitamin B-12) 1,000 Mcg Tab, 1,000 MCG PO DAILY, (Reported) Fluoxetine Hcl (Fluoxetine HCl) 20 Mg Cap, 20 MG PO DAILY, (Reported) Lamotrigine (Lamotrigine) 200 Mg Tab, 200 MG PO DAILY, (Reported) Levothyroxine Sodium (Levoxyl) 75 Mcg Tab, 75 MCG PO QAM, (Reported) Losartan Potassium (Losartan Potassium) 25 Mg Tab, 25 MG PO DAILY, (Reported) Magnesium Oxide (Magnesium) 400 Mg Tab, 400 MG PO DAILY, (Reported) Metoprolol Succinate (Metoprolol Succinate ER) 25 Mg Tab, 25 MG PO DAILY, ( Reported) Multivitamins *[facility] STOCKED* (Thera M Plus *[facility] STOCKED*) 1 Tab Tab, 1 TAB PO DAILY, (Reported) Zolpidem Tartrate (Zolpidem Tartrate) 5 Mg Tab, 5 MG PO QHS, (Reported) Zonisamide (Zonisamide) 25 Mg Cap, 25 MG PO QHS, (Reported) Scheduled PRN Sumatriptan Succinate (Imitrex) 6 Mg/0.5 Ml Inj, 1 INJ SC DAILY PRN for MIGRAINE , (Reported) Allergies Coded Allergies: Pregabalin (Verified Allergy, Intermediate, 07/09/17) Past Medical History Medical History 1. Hypertension. Currently off of all of her medication. 2. Hypothyroidism. 3. Migraine. 4. Depression. 5. Insomnia. Surgical History 1. section. 2. Tonsillectomy. 3. Appendectomy. 4. She did have a kidney stone history as well status post stent, but that stent was removed. 5. History of lithotripsy in the past. Family History Significant Family History: Unable to assess Social History * Smoker: Denies Alcohol: Denies Drugs: denies Review of Symptoms Constitutional: Denies: Chills, Fever, Night Sweats Eyes: Denies: Pain, Vision change ENT: Denies: Head Aches, Ear Pain, Dysphagia Skin: Denies: Rash, Lesions, Breakdown Pulmonary: Denies: Dyspnea, Cough Cardiovascular: Denies: Chest Pain, Palpitations, Orthopnea, Paroxysmal Noc. Dyspnea, Lt Headedness Gastrointestinal: Reports: Nausea, Vomiting, Denies: Abdominal Pain, Diarrhea Genitourinary: Denies: Dysuria, Frequency, Incontinence, Retention Hematologic: Denies: Bruising, Bleeding Excessively Musculoskeletal: Denies: Neck Pain, Back Pain, Joint Pain, Muscle Pain, Spasms Neurological: Denies: Weakness, Numbness, Change in speech, Confusion Psych: Reports: Mood Normal, Denies: Depression, Memory Issues Physical Examination General Exam: Positive: Alert, No Acute Distress Eye Exam: Positive: PERRLA, Conjunctiva & lids normal, EOMI, Negative: Sclera icteric ENT Exam: Positive: Atraumatic, Mucous membr. moist/pink, Pharynx Normal Neck Exam: Positive: Supple, Negative: JVD, thyromegaly Chest Exam: Positive: Clear to auscultation, Normal air movement Heart Exam: Positive: Rate Normal, Regular Rhythm, Normal S1, Normal S2, Negative: Murmurs, Rubs Telemetry: Positive: No significant arrhythmia Abdomen Exam: Positive: Normal bowel sounds, Soft, Tenderness, Negative: Hepatospenomegaly Extremity Exam: Positive: Normal pulses, Negative: Clubbing, Cyanosis, Edema Skin Exam: Positive: Nl turgor and temperature, Negative: Breakdown, Lesion Neuro Exam: Positive: Normal Gait, Normal Speech, Cranial Nerves 3-12 NL, Reflexes 2+ Psych Exam: Positive: Mental status NL, Mood NL, Oriented x 3 Other physical findings right CVAT Vital Signs Vital Signs Date Time Temp Pulse Resp B/P (MAP) Pulse Ox O2 Delivery O2 Flow Rate FiO2 07/10/17 11:12 97 140/80 07/10/17 10:46 98.0 20 98 Room Air Laboratory Data Labs 24H Laboratory Tests 2 07/09/17 18:53: Immature Granulocyte % (Auto) 0.4H, White Blood Count 10.8H, Red Blood Count 4.12, Hemoglobin 12.4, Hematocrit 38.2, Mean Corpuscular Volume 92.7, Mean Corpuscular Hemoglobin 30.1, Mean Corpuscular Hemoglobin Concent 32.5, Red Cell Distribution Width 13.2, Platelet Count 433, Neutrophils (%) (Auto) 58.7, Lymphocytes (%) (Auto) 29.1, Monocytes (%) (Auto) 8.6H, Eosinophils (%) (Auto) 2.7, Basophils (%) (Auto) 0.5, Neutrophils # (Auto) 6.4, Lymphocytes # (Auto) 3.2, Monocytes # (Auto) 0.9H, Eosinophils # (Auto) 0.3, Basophils # (Auto) 0.1, Immature Granulocyte # (Auto) 0.0, Nucleated Red Blood Cells % (auto) 0.0, Urine Appearance HAZY, Urine Color YELLOW, Urine pH 5.0, Urine Specific [place] 1.013, Urine Protein NEGATIVE, Urine Glucose (UA) NEGATIVE, Urine Ketones NEGATIVE, Urine Urobilinogen 0.2, Urine Bilirubin NEGATIVE, Urine Leukocyte Esterase NEGATIVE, Urine Blood NEGATIVE, Urine Nitrite NEGATIVE, Urine WBC (Auto ) 15H, Urine RBC (Auto) 8H, Urine Hyaline Casts (Auto) 0, Urine Bacteria (Auto) 1+H, Urine Squamous Epithelial Cells 10, Urine Mucus (Auto) SMALL, Urine Sperm ( Auto) , Urine Test NEGATIVE, Anion Gap 9, Glomerular Filtration Rate > 60.0, Blood Urea Nitrogen 10, Creatinine 0.80, Sodium Level 140, Potassium Level 3.8, Chloride Level 109H, Carbon Dioxide Level 22, Calcium Level 8.6, C- Reactive Protein, Quantitative 6.91H CBC/BMP Laboratory Tests 07/09/17 18:53 Red Blood Count 4.12, Mean Corpuscular Volume 92.7, Mean Corpuscular Hemoglobin 30.1, Mean Corpuscular Hemoglobin Concent 32.5, Red Cell Distribution Width 13.2 , Neutrophils (%) (Auto) 58.7, Lymphocytes (%) (Auto) 29.1, Monocytes (%) (Auto ) 8.6 H, Eosinophils (%) (Auto) 2.7, Basophils (%) (Auto) 0.5, Neutrophils # ( Auto) 6.4, Lymphocytes # (Auto) 3.2, Monocytes # (Auto) 0.9 H, Eosinophils # ( Auto) 0.3, Basophils # (Auto) 0.1, Calcium Level 8.6 Microbiology Microbiology 07/09/17 Urine Culture - Final, Complete Assessment/Plan Right ureteral stone causing severe flank pain, N/V refractory to pain medications Plan / VTE VTE Prophylaxis Ordered?: Yes VTE Exclusion Pharmacological: Bleeding Risk Plan Plan 1. Admit for same day care. 2. Pain control with IV pain medications. 3. Anti-emetics. 4. To OR, next available for cystoscopy, right ureteral stent placement and possible right ureteroscopy with laser lithotripsy. 5. We will plan to discharge pt to home after a period of observation after the procedure. MELINDA FLOWER MD Jul 10, 2017 14:44
[2017-07-10] MEDS ORDERED: ONDANSETRON 4MG/2ML VIAL (J2405) As Ordered ONE (15:08)
[2017-07-10] MEDS ORDERED: LIDOCAINE 2% INJ 100 MG/5 ML SDV (FOR ANES.) As Ordered ONE (15:08)
[2017-07-10] MEDS ORDERED: PROPOFOL 200 MG/20 ML VIAL As Ordered ONE (15:08)
[2017-07-10] MEDS ORDERED: PERCOCET 5MG/325MG TAB As Ordered ONE (15:41)
[2017-07-10] MEDS ORDERED: fentaNYL 100 MCG/2 ML INJECTION (J3010) IV PRN (15:45)
[2017-07-10] MEDS ORDERED: LR 1,000 ML IV SCH (15:45)
[2017-07-10] MEDS ORDERED: ONDANSETRON 4MG/2ML VIAL (J2405) IV PRN (15:45)
[2017-07-10] MEDS ORDERED: PERCOCET 5MG/325MG TAB PO PRN (15:45)
--- NOTE | 2017-07-10 15:54 | ROOPDOC ---
[facility] Report Of Operation Report of Operation DATE OF PROCEDURE: 07/10/17 PREPROCEDURE DIAGNOSES: Proximal right ureteral stone. POSTPROCEDURE DIAGNOSES: Proximal right ureteral stone. PROCEDURE: Cystoscopy, right retrograde pyelogram, right ureteroscopy, right ureteral stent placement. SURGEON: Melinda Sutton MD GEOPHYSICAL PROSPECTING PERMIT AGENT: gem technician ANESTHESIA: Gen. endotracheal. ESTIMATED BLOOD LOSS: Minimal COMPLICATIONS: None. REMARKS: Proximal right ureteral could not be accessed ureteroscopically at this time. JUSTIFICATION FOR PROCEDURE: This patient is a 42-year-old female who presented to the [facility] emergency department and was found to have an obstructing stone in her proximal right ureter. The urology service was consulted. The patient was counseled on the various treatment options going forward including a trial of passage with medical expulsive therapy, as well as various surgical modalities. The patient elected to proceed to the above described procedures. Full written informed consent was obtained. DESCRIPTION OF PROCEDURE: After being evaluated by the anesthesia service the patient was transferred to the operating room. General endotracheal anesthesia was initiated and the patient was placed into the dorsal lithotomy position. Timeout was performed. She had already received ciprofloxacin as surgical prophylaxis. Her genitalia was prepped and draped in the usual sterile manner. We began the procedure by advancing a 22.5 Italian rigid cystoscope through the urethra into the bladder. The urethra and interior of the bladder appeared generally normal. Bilateral ureteral orifices were visualized and orthotopic position. A 5 Italian open-ended ureteral catheter was advanced through the cystoscope and used to cannulate the right ureteral orifice. Contrast was then injected through the ureteral catheter and up the right ureter in a retrograde manner. Simultaneous fluoroscopic imaging demonstrated a possible filling defect in the proximal right ureter corresponding to the known stone. A sensor wire was then advanced through the ureteral catheter and up into the right kidney. The catheter was backed off the wire leaving the wire in place. We then exchanged the rigid cystoscope for a semirigid ureteroscope. The semirigid ureteroscope was then advanced into the bladder and up into the right ureter using the safety wire as a visual guide. The distal ureter was rather narrow but it was possible to advance several centimeters up the ureter. As we began approaching the mid-ureter, however, it became too tight to proceed further. We attempted advancing a second wire through the scope and up the ureter to help open the lumen and allow for further retrograde progress, but ultimately this only allowed us to move an additional centimeter or two. At this point it appeared that attempting to push further up would risk ureteral damage and so we decided to cease further attempts. The ureteroscope was exchanged back for the cystoscope which was backloaded over the safety wire and advanced into the bladder. A 6 Italian multilength ureteral stent was then advanced over the wire through the cystoscope and up the right ureter under fluoroscopic guidance. When it was in good position the wire was removed. The stent was confirmed to be properly placed. The bladder was drained. The patient was placed back into the supine position. Anesthesia was discontinued and the patient was transferred to the postoperative care unit. She had been hemodynamically stable throughout the entire case. PLAN: The patient will be discharged home today. She has been instructed to follow up with Dr. Pineda or Dr. Carrillo in the next 1-2 weeks to plan for a definitive procedure to treat the stone. She has been given prescriptions for Cipro to be taken as prophylactic antibiotics for the next several days, as well as oxycodone in case she has further pain. MELINDA SUTTON MD Jul 10, 2017 15:54
[2017-07-10] MEDS ORDERED: ZONISAMIDE 25 MG CAP (ZONEGRAN) PO SCH (21:00)
--- NOTE | 2017-07-11 07:49 | REP ---
4 seconds of fluoroscopy time was provided to Dr. Sutton during retrograde pyelogram and right-sided double J stent catheter placement. There is a double J stent catheter seen, the proximal portion of which is in the right renal pelvic region and the distal in the urinary bladder on the right. Three images were obtained. Signed by Roger Parker DO 07/11/2017 12:09 P
[2017-07-22] MEDS ORDERED: AMBI12.52 PO (08:52)
== END 2017-07-10 19:15 | disposition home or self-care (01) ==
LOC: M ED 17:31 → M SDC 23:30 → M PED 07-10 02:10 → M SDC 07-10 19:15
PROVIDERS: ATTEND Urology Pediatric Urology
DX: N20.1 Calculus of ureter (principal); I10 Essential (primary) hypertension; E03.9 Hypothyroidism, unspecified; R06.83 Snoring; F43.10 Post-traumatic stress disorder, unspecified; G43.909 Migraine, unspecified, not intractable, without status migrainosus; F32.9 Major depressive disorder, single episode, unspecified; G47.00 Insomnia, unspecified; Z88.5 Allergy status to narcotic agent; Z88.8 Allergy status to other drugs, medicaments and biological substances; Z79.899 Other long term (current) drug therapy
CPT/HCPCS: 52332; 74176; 74420; 80048; 81001; 84703; 85025; 86140; 87086; 96374; 96375; 96376; 99284; C1769; C2617; J0744; J1170; J1885; J2250; J2405; J3010; Q9961

== ENCOUNTER → 2017-07-15 | Outpatient (REF) | payer OTHER ==
[~2017-07-15] MED LIST changes: +CLON0.5T; +FLUO20CA19 PO; +LAMO200T PO; +LOSA25TA8 PO; +OMEP40CA2 PO; +ZOFR4TAB3 PO; +ZOLP5TAB PO
== END ==
LOC: M SMT 17:04
PROVIDERS: ATTEND Nurse Practitioner Women's Health
DX: N13.2 Hydronephrosis with renal and ureteral calculous obstruction (principal)

== ENCOUNTER → 2017-07-22 | Outpatient (CLI) | payer OTHER ==
[2017-07-22 13:24] LABS: CONTROL LINE HCG INT CTR LINE PRESENT
[2017-07-22 13:25] LABS: MEAN CORPUSCULAR HEMOGLOBIN 29.9 pg (27.0-33.0); MEAN CORPUSCULAR VOLUME 93.4 fl (80.0-96.0); PLATELET COUNT, AUTOMATED 407 10^3/uL (150-450); RED CELL DISTRIBUTION WIDTH 13.9 % (11.5-14.5); WHITE BLOOD COUNT 8.9 10^3/uL (4.0-10.0)
[2017-07-22 13:38] LABS: INR 0.99
[2017-07-22 15:04] LABS: ANION GAP 11 MEQ/L (8-16); BLOOD UREA NITROGEN 9 MG/DL (7-18); CALCIUM LEVEL 9.1 MG/DL (8.5-10.1); CARBON DIOXIDE LEVEL 21 MEQ/L (21-32); CHLORIDE LEVEL 109 MEQ/L (98-107); CREATININE FOR GFR 0.86 MG/DL (0.55-1.02); GLOMERULAR FILTRATION RATE > 60.0 (>58); GLUCOSE, FASTING 87 MG/DL (70-105); POTASSIUM SERUM 3.9 MEQ/L (3.5-5.1); SODIUM LEVEL 141 MEQ/L (136-145)
== END ==
LOC: M SMT 09:07
PROVIDERS: ATTEND Nurse Practitioner Women's Health
DX: Z01.818 Encounter for other preprocedural examination (principal); N13.2 Hydronephrosis with renal and ureteral calculous obstruction

== ENCOUNTER 2017-07-25 11:13 | Emergency (ER) | payer OTHER ==
[~2017-07-25] VITALS: Ht 167.6 cm; Wt 84.1 kg
[~2017-07-25 11:13] MED LIST changes: -OMEP40CA2 PO; -ZOFR4TAB3 PO
[2017-07-25] MEDS ORDERED: ISOVUE-370 76% 100ML VIAL (Q9967) As Ordered ONE (12:22)
[2017-07-25] MEDS ORDERED: PANTOPRAZOLE 40MG INJ (PROTONIX) (C9113) IV ONE (12:30)
[2017-07-25] MEDS ORDERED: ONDANSETRON 4MG/2ML VIAL (J2405) IV ONE (12:30)
[2017-07-25] MEDS ORDERED: NS 500 ML IV ONE (12:30)
[2017-07-25 12:34] LABS: BASO # 0.1 10^3/uL (0.0-0.2); BASO % 0.5 % (0.0-1.0); EOS # 0.3 10^3/uL (0.0-0.50); EOS % 2.8 % (0.0-3.0); IMMATURE GRANULOCYTE % 0.3 % (0-0); LYMPH # 2.8 10^3/uL (1.5-4.5); LYMPH % 26.9 % (24.0-44.0); MEAN CORPUSCULAR HEMOGLOBIN 30.5 pg (27.0-33.0); MEAN CORPUSCULAR HGB CONC 32.8 g/dl (32.0-36.5); MEAN CORPUSCULAR VOLUME 92.8 fl (80.0-96.0); MONO # 0.6 10^3/uL (0.0-0.8); NEUTROPHILS # 6.6 10^3/uL (1.8-7.7); NEUTROPHILS % 63.5 % (36.0-66.0); PLATELET COUNT, AUTOMATED 354 10^3/uL (150-450); RED CELL DISTRIBUTION WIDTH 13.8 % (11.5-14.5); WHITE BLOOD COUNT 10.3 10^3/uL (4.0-10.0)
[2017-07-25 12:43] LABS: ALBUMIN 3.4 GM/DL (3.2-5.2); ALBUMIN/GLOBULIN RATIO 0.94 (1.00-1.93); ALKALINE PHOSPHATASE 83 U/L (45-117); ALT/SGPT 17 U/L (12-78); ANION GAP 8 MEQ/L (8-16); AST/SGOT 11 U/L (15-37); BILIRUBIN,DIRECT < 0.1 MG/DL (0.0-0.2); BILIRUBIN,TOTAL 0.4 MG/DL (0.2-1.0); BLOOD UREA NITROGEN 10 MG/DL (7-18); CALCIUM LEVEL 8.9 MG/DL (8.5-10.1); CARBON DIOXIDE LEVEL 25 MEQ/L (21-32); CHLORIDE LEVEL 109 MEQ/L (98-107); CREATININE FOR GFR 0.84 MG/DL (0.55-1.02); GLOMERULAR FILTRATION RATE > 60.0 (>58); GLUCOSE, FASTING 92 MG/DL (70-105); POTASSIUM SERUM 3.8 MEQ/L (3.5-5.1); SODIUM LEVEL 142 MEQ/L (136-145)
--- NOTE | 2017-07-25 12:50 | REP ---
CT of the chest with IV contrast: Comparison is 05/09/2017. The there is no pneumothorax. There is no pneumomediastinum. There is no endotracheal tube. There is no nasogastric tube. There are no pleural effusions. There are no infiltrates. There is no mediastinal or hilar adenopathy. No axillary adenopathy. There are no emboli in the central pulmonary arteries are the pulmonary lobe or segment branches. Thoracic aorta is unremarkable. Cardiac size normal. There is no pericardial effusion. In the upper abdomen there is no perigastric phlegmon or pneumoperitoneum. The visualized portions of the liver, pancreas and spleen are unremarkable. Impression: Essentially negative CT study of the chest. Signed by Darron Sanders MD 07/25/2017 12:42 P
[2017-07-25] MEDS ORDERED: GI COCKTAIL 50ML BTL(HYOSCYAMINE/MAALOX/LIDOCAINE VISCOUS)(1:3:1) PO ONE (13:30)
[2017-07-25] MEDS ORDERED: OMEP40CA2 PO (13:57)
[2017-07-25] MEDS ORDERED: ZOFR4TAB3 PO (13:57)
[2017-07-25 14:10] VITALS: BP 161/102
--- NOTE | 2017-07-25 21:13 | ECGEPIP ---
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
== END 2017-07-25 14:26 | disposition home or self-care (01) ==
LOC: M ED 11:13
DX: R11.0 Nausea (principal); T39.395A Adverse effect of other nonsteroidal anti-inflammatory drugs [NSAID], initial encounter; I10 Essential (primary) hypertension; E03.9 Hypothyroidism, unspecified
CPT/HCPCS: 71275; 80048; 80076; 82550; 82553; 83690; 85025; 93005; 93041; 96374; 96375; 99284; C9113; J2405; Q9967

== ENCOUNTER 2017-07-28 11:02 | Day surgery (SDC) | payer OTHER ==
[~2017-07-28] VITALS: Ht 167.6 cm; Wt 92.7 kg
[~2017-07-28 11:02] MED LIST changes: +OMEP40CA2 PO; +ZOFR4TAB3 PO
[2017-07-28] MEDS ORDERED: LR 1,000 ML IV ONE (11:30)
[2017-07-28] MEDS ORDERED: LIDOCAINE 1% MDV 20ML VIAL SQ PRN (11:30)
[2017-07-28 12:12] LABS: CONTROL LINE UCG INT CTR LINE PRESENT
[2017-07-28] MEDS ORDERED: CONRAY-60 60% 50ML VIAL (Q9961) As Ordered ONE (13:55)
[2017-07-28] MEDS ORDERED: fentaNYL 100 MCG/2 ML INJECTION (J3010) As Ordered ONE (14:56)
[2017-07-28] MEDS ORDERED: MIDAZOLAM INJ 2 MG/2 ML VIAL (J2250) As Ordered ONE (14:57)
[2017-07-28] MEDS ORDERED: PERCOCET 5MG/325MG TAB As Ordered ONE (15:11)
--- NOTE | 2017-07-28 15:18 | REP ---
Retrograde pyelogram: Three views. History: Stone. 13 seconds of fluoroscopy time is reported. Findings: A sequence of three last image hold fluoroscopic spot radiographs of the right abdomen document right ureteral cannulation, contrast injection, and double pigtail ureteral stent placement. Signed by Lukas Mejia MD 07/28/2017 04:13 P
[2017-07-28] MEDS ORDERED: PERCOCET 5MG/325MG TAB PO PRN (15:30)
[2017-07-28] MEDS ORDERED: ACETAMINOPHEN TAB 650MG DOSE (2X325MG) PO PRN (15:30)
[2017-07-28 16:20] VITALS: BP 146/88
--- NOTE | 2017-07-29 20:37 | RO ---
DATE OF PROCEDURE: 07/28/2017 PREPROCEDURE DIAGNOSIS: Obstructing right ureteral stone. POSTPROCEDURE DIAGNOSIS: Obstructing right ureteral stone. PROCEDURE: Cystoscopy, right ureteroscopy with laser lithotripsy and basket extraction of stones, right retrograde pyelogram with intraoperative interpretation of images, right ureteral stent exchange. SURGEON: Dr. Hussain Carrillo WAFER LINE WORKER: None. ANESTHESIA: General. OPERATIVE INDICATIONS: This is a 42-year-old female who was found to have an obstructing proximal right ureteral stone recently. She was brought to the operating room a few weeks ago for right ureteral stent placement. She was brought today for removal of the stone. DESCRIPTION OF PROCEDURE: The patient was brought to the operating room where general anesthesia was induced. Prophylactic antibiotics were infused. She was then placed in the dorsal lithotomy position and prepped and draped in the usual sterile fashion. A rigid cystoscope was inserted into the urethral meatus and advanced to the bladder. Once within the bladder, the previously placed stent was seen. The stent was then grasped and withdrawn until the distal end was seen protruding from the urethral meatus. I then advanced a wire up the stent into the right collecting system. The stent was then removed leaving the wire in place. Next, the ureteral access sheath was advanced over the wire up into the right collecting system. The stylet was then removed, and the wire secured to the drapes to serve as a safety wire. We then went up the ureteral access sheath with a flexible ureteroscope and within the proximal ureter, an 8 mm stone was seen. The stone was then fragmented into smaller pieces using a 200 micron laser fiber. All of these fragments were then removed with the basket. Next, the scope was advanced into the more proximal ureter and into the kidney, and no additional stones were seen. A retrograde pyelogram was then performed, and it was notable for mild to moderate right hydronephrosis. There was no extravasation. At this point, the ureteral access sheath was withdrawn, along with the ureteroscope and no additional stones were seen. The previously placed wire was then utilized to advance a #6-Lao x 22-32 cm JJ ureteral stent up into the right collecting system. The wire was then removed and there were adequate curls of the stent in the right renal pelvis and in the bladder. The bladder was then emptied of all fluid. This marked the conclusion of the procedure. The patient was then taken out of the dorsal lithotomy position, awakened from anesthesia and transported to the recovery room in stable condition. Estimated blood loss: 0 mL. Complications: None. Specimens: Kidney stone fragments. PLAN: The patient will be brought back to be seen in the clinic in a week or two for stent removal. XU
== END 2017-07-28 16:31 | disposition home or self-care (01) ==
LOC: M SDC 11:02
PROVIDERS: ATTEND Urology
DX: N20.1 Calculus of ureter (principal); E03.9 Hypothyroidism, unspecified; G43.909 Migraine, unspecified, not intractable, without status migrainosus; I10 Essential (primary) hypertension; M54.2 Cervicalgia; F41.9 Anxiety disorder, unspecified; F32.9 Major depressive disorder, single episode, unspecified; R06.83 Snoring; G47.30 Sleep apnea, unspecified; R07.9 Chest pain, unspecified; Z88.5 Allergy status to narcotic agent; Z88.8 Allergy status to other drugs, medicaments and biological substances; Z79.899 Other long term (current) drug therapy; Z87.820 Personal history of traumatic brain injury
CPT/HCPCS: 52356; 74420; 82360; 84703; 88300; C1769; C1894; C2617; J0690; J2250; J3010; Q9961

== ENCOUNTER → 2018-01-27 | Outpatient (CLI) | payer OTHER, SELFPAY | LOC: M RAD 13:48 | DX: H90.A32 Mixed conductive and sensorineural hearing loss, unilateral, left ear with restricted hearing on the contralateral side (principal) | CPT/HCPCS: 70480 ==

== ENCOUNTER → 2018-10-09 | Outpatient (CLI) | payer OTHER ==
[~2018-10-09] MED LIST changes: -AMLO10TA2 PO; +AMLO10TA5 PO; -CLON0.5T; +CLON0.5T8; -LAMO200T PO; +LAMO200T2 PO; +LOSA25TA14 PO; -LOSA25TA8 PO; +NAPR-885 PO; -NAPR500T3 PO; +ZOFR4TAB14 PO; -ZOFR4TAB3 PO
--- NOTE | 2018-10-09 15:18 | REP ---
LEFT SHOULDER, THREE VIEWS: HISTORY: Pain. There is no acute fracture or dislocation. The joint spaces are normal in appearance. IMPRESSION: There is no acute fracture or dislocation. Electronically Signed by Narciso Adams MD 10/09/2018 03:21 P
== END ==
LOC: M WUC 14:17
PROVIDERS: ATTEND Physician Assistant
DX: M25.512 Pain in left shoulder (principal)

== ENCOUNTER 2019-02-05 11:37 | Emergency (ER) | payer OTHER ==
[~2019-02-05] VITALS: Ht 162.6 cm; Wt 68.2 kg
[2019-02-05 11:37] VITALS: BP 131/90
[~2019-02-05 11:37] MED LIST changes: +LAMO100T80 PO; -LAMO10TA PO; -MAGN1TAB25 PO; +MAGN1TAB26 PO
[2019-02-05] MEDS ORDERED: DULO1CAP2 (11:51)
[2019-02-05] MEDS ORDERED: RIZA10TA4 (11:51)
[2019-02-05] MEDS ORDERED: GABA-843 (11:51)
[2019-02-05] MEDS ORDERED: CYCL10TA PO (12:15)
[2019-02-05] MEDS ORDERED: NAPR-837 PO (12:15)
== END 2019-02-05 12:32 | disposition home or self-care (01) ==
LOC: M ED 11:37
DX: M25.512 Pain in left shoulder (principal); G89.29 Other chronic pain; E07.9 Disorder of thyroid, unspecified; G43.909 Migraine, unspecified, not intractable, without status migrainosus; Z88.5 Allergy status to narcotic agent; Z88.8 Allergy status to other drugs, medicaments and biological substances; Z79.899 Other long term (current) drug therapy

== ENCOUNTER → 2019-04-06 | Outpatient (REF) | payer OTHER ==
[~2019-04-06] MED LIST changes: +CYAN100049 PO; +CYCL10TA PO; +DULO1CAP5; +GABA-843; +NAPR-837 PO; +RIZA10TA4; -VITA10002 PO
[2019-04-06 11:49] LABS: BASO # 0.1 10^3/uL (0.0-0.2); BASO % 0.7 % (0.0-1.0); EOS # 0.5 10^3/uL (0.0-0.50); EOS % 6.2 % (0.0-3.0); HEMATOCRIT 37.5 % (36.0-47.0); HEMOGLOBIN 11.3 g/dl (12.0-15.5); LYMPH # 2.5 10^3/uL (1.5-4.5); MEAN CORPUSCULAR HEMOGLOBIN 26.6 pg (27.0-33.0); MEAN CORPUSCULAR HGB CONC 30.1 g/dl (32.0-36.5); MEAN CORPUSCULAR VOLUME 88.2 fl (80.0-96.0); MONO # 0.6 10^3/uL (0.0-0.8); MONO % 7.3 % (0.0-5.0); NEUTROPHILS # 4.6 10^3/uL (1.8-7.7); NEUTROPHILS % 55.4 % (36.0-66.0); PLATELET COUNT, AUTOMATED 394 10^3/uL (150-450); RED BLOOD COUNT 4.25 10^6/uL (4.00-5.40); WHITE BLOOD COUNT 8.2 10^3/uL (4.0-10.0)
[2019-04-06 12:48] LABS: ALT/SGPT 15 U/L (12-78); BILIRUBIN,TOTAL 0.2 MG/DL (0.2-1.0); BLOOD UREA NITROGEN 10 MG/DL (7-18); CALCIUM LEVEL 8.9 MG/DL (8.5-10.1); CARBON DIOXIDE LEVEL 23 MEQ/L (21-32); CHLORIDE LEVEL 109 MEQ/L (98-107); CHOLESTEROL LEVEL 247 MG/DL (<200); CHOLESTEROL RISK RATIO 2.975 (<5); CREATININE FOR GFR 0.74 MG/DL (0.55-1.30); FREE T4 1.05 NG/DL (0.76-1.46); GLOMERULAR FILTRATION RATE > 60.0 (>58); GLUCOSE, FASTING 80 MG/DL (70-100); HDL CHOLESTEROL 83 MG/DL (>40); LDL CHOLESTEROL 142 MG/DL (<100); MAGNESIUM LEVEL 2.4 MG/DL (1.8-2.4); NON-HDL-C 164 MG/DL; POTASSIUM SERUM 4.1 MEQ/L (3.5-5.1); SODIUM LEVEL 140 MEQ/L (136-145); THYROID STIMULATING HORMONE 0.835 uIU/ML (0.358-3.740); TOTAL PROTEIN 7.3 GM/DL (6.4-8.2); TRIGLYCERIDES LEVEL 109 MG/DL (<150)
[2019-04-06 13:41] LABS: HEMOGLOBIN A1c 5.5 %
== END ==
LOC: M SFHCPLAZ 10:21
PROVIDERS: ATTEND Nurse Practitioner Family
DX: I10 Essential (primary) hypertension (principal); E03.9 Hypothyroidism, unspecified; Z13.220 Encounter for screening for lipoid disorders

== ENCOUNTER → 2019-04-11 | Outpatient (CLI) | payer OTHER ==
--- NOTE | 2019-04-11 21:44 | REP ---
Clinical: Menorrhagia . Technique: Transabdominal pelvic ultrasound followed by transvaginal examination for better evaluation of the endometrium and adnexa with color Doppler evaluation of the ovaries. Findings: Bladder is unremarkable and measures 10.4 x 7.8 x 11.1 cm . Heterogeneous anteverted uterus measures 10.4 x 4.0 x 5.5 cm . The endometrial complex measures 5.6 mm thickness. Few subcentimeter Nabothian cysts are identified along with section scar. Bilateral ovaries are normal in appearance and vascularity without evidence for torsion. Right ovary measures 3.6 x 2.2 x 3.1 cm ; R I = 0.56 . Left ovary measures 3.3 x 2.3 x 2.3 cm ; R I = 0.65 . No pelvic fluid or adnexal mass lesion . Impression: 1. relatively normal uterus and adnexa. Electronically Signed by Feliciano Ortiz MD 04/11/2019 09:35 P
== END ==
LOC: M RAD 17:36
PROVIDERS: ATTEND Nurse Practitioner Family
DX: N92.4 Excessive bleeding in the premenopausal period (principal)

== ENCOUNTER 2019-11-10 11:03 | Emergency (ER) | payer OTHER ==
[~2019-11-10] VITALS: Ht 162.6 cm; Wt 78.9 kg
[~2019-11-10 11:03] MED LIST changes: +CLON0.5T2; -CLON0.5T8; -FLUO20CA19 PO; +FLUO20CA22 PO; -LAMO200T2 PO; +LAMO200T3 PO; -OMEP40CA2 PO; +OMEP40CA97 PO; -RIZA10TA4; +RIZA10TA58; +ZONI25CA13 PO; -ZONI25CA2 PO
[2019-11-10] MEDS ORDERED: CLON0.5T2 (11:11)
[2019-11-10] MEDS ORDERED: AMLO10TA5 (11:11)
--- NOTE | 2019-11-10 11:41 | REP ---
Clinical: Trauma. Technique: AP, lateral, bilateral oblique views left fifth digit . Findings: Swelling at the proximal interphalangeal joint is noted. No acute fracture or dislocation. No subcutaneous emphysema or foreign body. Impression: Swelling. No acute fracture. Electronically Signed by Feliciano Ortiz MD 11/10/2019 11:33 A
[2019-11-10 13:13] VITALS: BP 125/88
== END 2019-11-10 13:29 | disposition home or self-care (01) ==
LOC: M ED 11:03
DX: S63.637A Sprain of interphalangeal joint of left little finger, initial encounter (principal); S60.052A Contusion of left little finger without damage to nail, initial encounter; W22.09XA Striking against other stationary object, initial encounter; Y92.9 Unspecified place or not applicable; Y93.9 Activity, unspecified; Y99.9 Unspecified external cause status; I10 Essential (primary) hypertension; E03.9 Hypothyroidism, unspecified; F32.9 Major depressive disorder, single episode, unspecified; F41.9 Anxiety disorder, unspecified; Z88.6 Allergy status to analgesic agent; Z88.8 Allergy status to other drugs, medicaments and biological substances; Z96.0 Presence of urogenital implants

== ENCOUNTER → 2019-11-23 | Outpatient (CLI) | payer OTHER ==
[~2019-11-23] MED LIST changes: +AMLO10TA5
[2019-11-23 13:05] LABS: BASO % 0.6 % (0.0-1.0); EOS # 0.3 10^3/uL (0.0-0.5); HEMOGLOBIN 10.4 g/dl (12.0-15.5); LYMPH # 2.4 10^3/uL (1.5-5.0); LYMPH % 36.6 % (24.0-44.0); MEAN CORPUSCULAR HEMOGLOBIN 25.4 pg (27.0-33.0); MEAN CORPUSCULAR HGB CONC 29.7 g/dl (32.0-36.5); MEAN CORPUSCULAR VOLUME 85.4 fl (80.0-96.0); MONO # 0.6 10^3/uL (0.0-0.8); MONO % 9.3 % (0.0-5.0); NEUTROPHILS # 3.3 10^3/uL (1.5-8.5); NEUTROPHILS % 49.4 % (36.0-66.0); PLATELET COUNT, AUTOMATED 285 10^3/uL (150-450); WHITE BLOOD COUNT 6.7 10^3/uL (4.0-10.0)
[2019-11-23 13:34] LABS: HEMOGLOBIN A1c 5.1 %
[2019-11-23 13:42] LABS: ALBUMIN 3.1 GM/DL (3.2-5.2); ALT/SGPT 13 U/L (12-78); BILIRUBIN,TOTAL 0.2 MG/DL (0.2-1.0); BLOOD UREA NITROGEN 14 MG/DL (7-18); CALCIUM LEVEL 8.8 MG/DL (8.5-10.1); CARBON DIOXIDE LEVEL 26 MEQ/L (21-32); CHLORIDE LEVEL 112 MEQ/L (98-107); CHOLESTEROL LEVEL 201 MG/DL (<200); CREATININE FOR GFR 0.71 MG/DL (0.55-1.30); FERRITIN 4 NG/ML (8-252); FREE T4 0.88 NG/DL (0.76-1.46); GLOMERULAR FILTRATION RATE > 60.0 (>58); GLUCOSE, FASTING 82 MG/DL (70-100); HDL CHOLESTEROL 60 MG/DL (>40); LDL CHOLESTEROL 120 MG/DL (<100); NON-HDL-C 141 MG/DL; POTASSIUM SERUM 4.5 MEQ/L (3.5-5.1); SODIUM LEVEL 142 MEQ/L (136-145); THYROID STIMULATING HORMONE 0.796 uIU/ML (0.358-3.740); TOTAL PROTEIN 5.9 GM/DL (6.4-8.2); TRIGLYCERIDES LEVEL 104 MG/DL (<150)
== END ==
LOC: M WUC 10:49
PROVIDERS: ATTEND Nurse Practitioner Family
DX: I10 Essential (primary) hypertension (principal); E03.9 Hypothyroidism, unspecified; D50.9 Iron deficiency anemia, unspecified; E78.5 Hyperlipidemia, unspecified; F43.10 Post-traumatic stress disorder, unspecified

== ENCOUNTER → 2019-12-06 | Outpatient (CLI) | payer OTHER ==
--- NOTE | 2019-12-12 16:00 | REPMRS ---
Patient History The patient states she has not had a clinical breast exam in over a year. Patient had first child at age 32. No Hormone Replacement Therapy Digital Woman Screen Mammo: December 06, 2019 - Exam #: [id number] Bilateral CC and MLO view(s) were taken. Technologist: Paty Rosado, Technologist Prior study comparison: December 27, 2015, bilateral digital mammo screening bilat, performed at [facility]. FINDINGS: There are scattered fibroglandular densities. There is a moderate amount of residual fibroglandular tissue which is fairly symmetric. There is no interval development of dominant mass, architectural distortion, or grouped microcalcification typical of malignancy. There has been no change in the appearance of the mammogram from the prior studies. 3-D tomosynthesis shows no additional findings. Assessment: BI-RADS/ACR category 1 mammogram. Negative Mammogram. Recommendation Routine screening mammogram of both breasts in 1 year (for women over age 40). This patient's Lifetime Breast Cancer RIsk is estimated at 14.2 %. This mammogram was interpreted with the aid of an FDA-approved computer-aided dectection system. Electronically Signed By: Tim Mejia MD 12/12/19 [id number]
== END ==
LOC: M WHC 12:30
PROVIDERS: ATTEND Nurse Practitioner Family
DX: Z12.31 Encounter for screening mammogram for malignant neoplasm of breast (principal)

== ENCOUNTER 2020-05-07 18:00 | Emergency (ER) | payer OTHER ==
[~2020-05-07 18:00] MED LIST changes: -AMLO10TA5; -AMLO10TA5 PO; +AMLO1TAB25; +AMLO1TAB25 PO; +CYCL-707 PO; -CYCL10TA PO
[2020-05-07] MEDS ORDERED: ACETAMINOPHEN 500 MG TAB ONE (19:57)
== END 2020-05-07 20:00 | disposition home or self-care (01) ==
LOC: M ED 18:00
DX: S06.0X0A Concussion without loss of consciousness, initial encounter (principal); W18.39XA Other fall on same level, initial encounter; Y92.008 Other place in unspecified non-institutional (private) residence as the place of occurrence of the external cause; I10 Essential (primary) hypertension; E03.9 Hypothyroidism, unspecified; F41.9 Anxiety disorder, unspecified; G47.00 Insomnia, unspecified; Z79.899 Other long term (current) drug therapy; Z79.890 Hormone replacement therapy; Z88.5 Allergy status to narcotic agent; Z88.8 Allergy status to other drugs, medicaments and biological substances

== ENCOUNTER → 2020-05-12 | Outpatient (REF) | payer OTHER ==
[2020-06-11 14:58] LABS: BASO # 0.1 10^3/uL (0.0-0.2); BASO % 0.6 % (0.0-1.0); EOS # 0.3 10^3/uL (0.0-0.5); EOS % 3.5 % (0.0-3.0); HEMATOCRIT 49.5 % (36.0-47.0); HEMOGLOBIN 16.2 g/dl (12.0-15.5); LYMPH # 2.3 10^3/uL (1.5-5.0); LYMPH % 26.9 % (24.0-44.0); MEAN CORPUSCULAR HEMOGLOBIN 32.8 pg (27.0-33.0); MEAN CORPUSCULAR HGB CONC 32.7 g/dl (32.0-36.5); MEAN CORPUSCULAR VOLUME 100.2 fl (80.0-96.0); MONO # 0.6 10^3/uL (0.0-0.8); MONO % 7.7 % (0.0-5.0); NEUTROPHILS # 5.1 10^3/uL (1.5-8.5); NEUTROPHILS % 61.1 % (36.0-66.0); PLATELET COUNT, AUTOMATED 329 10^3/uL (150-450); RED BLOOD COUNT 4.94 10^6/uL (4.00-5.40); WHITE BLOOD COUNT 8.4 10^3/uL (4.0-10.0)
[2020-06-24 13:36] LABS: ALBUMIN 3.6 GM/DL (3.2-5.2); ALT/SGPT 14 U/L (12-78); BILIRUBIN,TOTAL 0.3 MG/DL (0.2-1.0); BLOOD UREA NITROGEN 11 MG/DL (7-18); CARBON DIOXIDE LEVEL 30 MEQ/L (21-32); CHLORIDE LEVEL 105 MEQ/L (98-107); CREATININE FOR GFR 0.82 MG/DL (0.55-1.30); FERRITIN 19 NG/ML (8-252); GLOMERULAR FILTRATION RATE > 60.0 (>58); GLUCOSE, FASTING 68 MG/DL (70-100); IRON (FE) 172 UG/DL (50-170); POTASSIUM SERUM 4.2 MEQ/L (3.5-5.1); SODIUM LEVEL 140 MEQ/L (136-145)
== END ==
LOC: M SFHCPLAZ 09:50
PROVIDERS: ATTEND Physician Assistant Medical
DX: R55 Syncope and collapse (principal)
CPT/HCPCS: 36415; 80053; 82140; 82728; 83540; 85025; G0463

== ENCOUNTER → 2020-05-19 | Outpatient (CLI) | payer OTHER ==
--- NOTE | 2020-07-08 11:02 | EEG ---
DATE: DIAGNOSIS: Syncope, concern for seizure. EEG# [id number] REFERRING PHYSICIAN: Not provided. HISTORY: Patient is a 45-year-old woman who was admitted at [facility] due to passing out spells and concussion. She also has a history of headaches. She is currently taking Ambien, Levothyroxine, clonazepam, Cymbalta, gabapentin, etc. TECHNICAL DESCRIPTION: This baseline EEG was recorded by a 21-scalp, ear, and two EKG electrodes and was reviewed in bipolar and referential montages following reformatting in 10-20 international electrode placement system. INTERPRETATION: Patient was noted to be in awake and drowsy states during this EEG. Resting and awake background rhythm consisted of well-formed posterior dominant rhythm with anterior-posterior gradient comprising of 9 Hz alpha activity measuring 15-40 microvolts in amplitude, which was symmetric and reactive to eye opening. Attenuation of posterior dominant rhythm was seen during transition to drowsiness. No sleep was achieved. Hyperventilation and photic stimulation remained unremarkable. EKG revealed normal sinus rhythm. No focal, lateralizing, or epileptiform abnormalities were seen. No relevant clinical activity was noted. CONCLUSION: This EEG in awake and drowsy states sleep is within normal limits. [facility]
== END ==
LOC: M SLEEP 08:45
PROVIDERS: ATTEND Physician Assistant Medical
DX: R55 Syncope and collapse (principal)

== ENCOUNTER → 2020-07-28 | Outpatient (REF) | payer OTHER ==
[2020-07-28 14:12] LABS: BASO # 0.1 10^3/uL (0.0-0.2); BASO % 0.6 % (0.0-1.0); EOS # 0.3 10^3/uL (0.0-0.5); HEMOGLOBIN 16.1 g/dl (12.0-15.5); LYMPH # 2.9 10^3/uL (1.5-5.0); LYMPH % 34.4 % (24.0-44.0); MEAN CORPUSCULAR HEMOGLOBIN 32.2 pg (27.0-33.0); MEAN CORPUSCULAR HGB CONC 32.9 g/dl (32.0-36.5); MONO # 0.7 10^3/uL (0.0-0.8); MONO % 7.8 % (0.0-5.0); NEUTROPHILS # 4.5 10^3/uL (1.5-8.5); PLATELET COUNT, AUTOMATED 320 10^3/uL (150-450); WHITE BLOOD COUNT 8.4 10^3/uL (4.0-10.0)
[2020-07-28 14:31] LABS: HEMOGLOBIN A1c 4.9 %
[2020-07-28 14:45] LABS: ALBUMIN 3.6 GM/DL (3.2-5.2); ALT/SGPT 14 U/L (12-78); BILIRUBIN,TOTAL 0.4 MG/DL (0.2-1.0); BLOOD UREA NITROGEN 8 MG/DL (7-18); CALCIUM LEVEL 9.5 MG/DL (8.5-10.1); CARBON DIOXIDE LEVEL 27 MEQ/L (21-32); CHLORIDE LEVEL 106 MEQ/L (98-107); CHOLESTEROL LEVEL 255 MG/DL (<200); CHOLESTEROL RISK RATIO 3.642 (<5); CREATININE FOR GFR 0.75 MG/DL (0.55-1.30); GLOMERULAR FILTRATION RATE > 60.0 (>58); GLUCOSE, FASTING 92 MG/DL (70-100); HDL CHOLESTEROL 70 MG/DL (>40); LDL CHOLESTEROL 163 MG/DL (<100); NON-HDL-C 185 MG/DL; SODIUM LEVEL 139 MEQ/L (136-145); THYROID STIMULATING HORMONE 0.419 uIU/ML (0.358-3.740); TOTAL PROTEIN 6.8 GM/DL (6.4-8.2); TRIGLYCERIDES LEVEL 110 MG/DL (<150)
== END ==
LOC: M SFHCPLAZ 12:19
PROVIDERS: ATTEND Nurse Practitioner Family
DX: D50.9 Iron deficiency anemia, unspecified (principal); I10 Essential (primary) hypertension; E03.9 Hypothyroidism, unspecified; E78.5 Hyperlipidemia, unspecified
CPT/HCPCS: 36415; 80053; 80061; 83036; 84439; 84443; 85025; 85046; G0463

== ENCOUNTER → 2020-10-02 | Outpatient (CLI) | payer OTHER | LOC: M LABSMTC 12:43 | PROVIDERS: ATTEND Pediatrics | DX: Z20.828 Contact with and (suspected) exposure to other viral communicable diseases (principal) ==

== ENCOUNTER → 2020-10-07 | Outpatient (CLI) | payer OTHER ==
--- NOTE | 2020-10-07 15:23 | REPPI ---
INDICATION: COUGH, SOB COMPARISON: 05/09/2017 TECHNIQUE: PA and lateral. FINDINGS: The mediastinum and cardiac silhouette are normal. The lung bertrand are clear and without acute consolidation, effusion, or pneumothorax. The skeletal structures are intact and normal. IMPRESSION: No acute cardiopulmonary process. <Electronically signed by Feliciano Ortiz > 10/07/20 [id number]
== END ==
LOC: M PLAIMG 12:33
PROVIDERS: ATTEND Physician Assistant
DX: R05 Cough (principal); R06.02 Shortness of breath
CPT/HCPCS: 71046; G0463

== ENCOUNTER 2021-04-26 02:37 | Emergency (ER) | payer OTHER ==
[~2021-04-26] VITALS: Ht 165.1 cm; Wt 80.3 kg
[~2021-04-26 02:37] MED LIST changes: +GABA-282; -GABA-843; +OMEP40CA4 PO; -OMEP40CA97 PO
[2021-04-26 02:38] VITALS: BP 150/100
[2021-04-26] MEDS ORDERED: CETI10CH PO (03:02)
== END 2021-04-26 04:14 | disposition left against medical advice (07) ==
LOC: M ED 02:37
DX: Z53.21 Procedure and treatment not carried out due to patient leaving prior to being seen by health care provider (principal)

== ENCOUNTER → 2021-04-29 | Outpatient (CLI) | payer OTHER ==
[~2021-04-29] MED LIST changes: +CETI10CH PO
[2021-04-29 17:01] LABS: BASO # 0.1 10^3/uL (0.0-0.2); BASO % 0.8 % (0.0-1.0); EOS # 0.3 10^3/uL (0.0-0.5); EOS % 3.2 % (0.0-3.0); HEMATOCRIT 42.6 % (36.0-47.0); HEMOGLOBIN 12.9 g/dl (12.0-15.5); LYMPH # 2.1 10^3/uL (1.5-5.0); LYMPH % 26.2 % (24.0-44.0); MEAN CORPUSCULAR HEMOGLOBIN 27.4 pg (27.0-33.0); MEAN CORPUSCULAR HGB CONC 30.3 g/dl (32.0-36.5); MEAN CORPUSCULAR VOLUME 90.4 fl (80.0-96.0); MONO # 0.7 10^3/uL (0.0-0.8); NEUTROPHILS # 4.8 10^3/uL (1.5-8.5); NEUTROPHILS % 60.4 % (36.0-66.0); PLATELET COUNT, AUTOMATED 370 10^3/uL (150-450); RED BLOOD COUNT 4.71 10^6/uL (4.00-5.40); WHITE BLOOD COUNT 7.9 10^3/uL (4.0-10.0)
[2021-04-29 17:18] LABS: HEMOGLOBIN A1c 5.1 %
[2021-04-29 17:29] LABS: ALBUMIN 3.6 GM/DL (3.2-5.2); ALT/SGPT 27 U/L (12-78); BILIRUBIN,TOTAL 0.3 MG/DL (0.2-1.0); BLOOD UREA NITROGEN 9 MG/DL (7-18); CALCIUM LEVEL 8.9 MG/DL (8.5-10.1); CARBON DIOXIDE LEVEL 27 MEQ/L (21-32); CHLORIDE LEVEL 109 MEQ/L (98-107); CHOLESTEROL LEVEL 228 MG/DL (<200); CHOLESTEROL RISK RATIO 2.651 (<5); CREATININE FOR GFR 0.71 MG/DL (0.55-1.30); FERRITIN 31 NG/ML (8-252); FREE T4 0.99 NG/DL (0.76-1.46); GLOMERULAR FILTRATION RATE > 60.0 (>58); GLUCOSE, FASTING 79 MG/DL (70-100); HDL CHOLESTEROL 86 MG/DL (>40); LDL CHOLESTEROL 119 MG/DL (<100); NON-HDL-C 142 MG/DL; POTASSIUM SERUM 3.7 MEQ/L (3.5-5.1); SODIUM LEVEL 141 MEQ/L (136-145); THYROID STIMULATING HORMONE 0.699 uIU/ML (0.358-3.740); TOTAL PROTEIN 6.9 GM/DL (6.4-8.2); TRIGLYCERIDES LEVEL 113 MG/DL (<150)
== END ==
LOC: M PLALAB 14:38
PROVIDERS: ATTEND Nurse Practitioner Family
DX: E03.9 Hypothyroidism, unspecified (principal); I10 Essential (primary) hypertension; E78.5 Hyperlipidemia, unspecified; D50.9 Iron deficiency anemia, unspecified

== ENCOUNTER → 2021-04-29 | Outpatient (REF) | payer OTHER | LOC: M SFHCWAGY 18:25 | PROVIDERS: ATTEND Advanced Practice Midwife | DX: Z12.4 Encounter for screening for malignant neoplasm of cervix (principal) | CPT/HCPCS: 36415; 80053; 80061; 82728; 83036; 84439; 84443; 84702; 85025; 87624; G0123; G0463 ==

== ENCOUNTER → 2021-04-29 | Outpatient (CLI) | payer OTHER | LOC: M PLALAB 14:34 | PROVIDERS: ATTEND Advanced Practice Midwife | DX: N92.0 Excessive and frequent menstruation with regular cycle (principal) ==

== ENCOUNTER → 2021-05-07 | Outpatient (CLI) | payer OTHER ==
--- NOTE | 2021-05-07 17:07 | REP ---
INDICATION: MENORRHAGIA,N92.0. COMPARISON: 04/11/2019 the only prior TECHNIQUE: Transvesical and trans vaginal scanning FINDINGS: The uterus measures 10.3 x 5.6 x 6.6 cm. The parenchymal echo pattern is essentially unchanged. No discrete masses are identified. The endometrial echo complex is abnormally thickened measuring 3.3 cm and is heterogenous. This represents a change compared to the prior exam. The right ovary was not visualized transvesical or vaginally. Left ovary measures 2.1 x 1.6 x 1.8 cm and is within normal limits with an RI 0.47. Urinary bladder measures 8 x 6 x 11 cm IMPRESSION: Abnormally thickened heterogenous endometrial echo complex. Neoplastic change cannot be ruled out. <Electronically signed by Roger Parker > 05/07/21 [id number]
== END ==
LOC: M WHC 14:34
PROVIDERS: ATTEND Advanced Practice Midwife
DX: N92.0 Excessive and frequent menstruation with regular cycle (principal); N85.00 Endometrial hyperplasia, unspecified

== ENCOUNTER → 2021-05-11 | Outpatient (REF) | payer OTHER | LOC: M SFHCWAGY 18:37 | PROVIDERS: ATTEND Advanced Practice Midwife | DX: R93.89 Abnormal findings on diagnostic imaging of other specified body structures (principal); N92.1 Excessive and frequent menstruation with irregular cycle ==

== ENCOUNTER 2021-06-07 19:04 | Emergency (ER) | payer OTHER ==
[~2021-06-07] VITALS: Ht 162.6 cm; Wt 84.1 kg
[~2021-06-07 19:04] MED LIST changes: -DULO1CAP5; +DULO1CAP5 PO
[2021-06-07 19:08] VITALS: BP 139/83
[2021-06-07] MEDS ORDERED: NAPR220C14 PO (19:22)
[2021-06-07] MEDS ORDERED: ACET-683 PO (19:22)
[2021-06-07] MEDS ORDERED: MEDR10TA PO (19:22)
[2021-06-07] MEDS ORDERED: CLON0.5T2 PO (19:22)
[2021-06-07] MEDS ORDERED: MAGN400C2 PO (19:22)
[2021-06-07] MEDS ORDERED: KETOROLAC 30 MG/ML 1ML VIAL IV ONE (21:10)
[2021-06-07] MEDS ORDERED: ONDANSETRON 4MG/2ML VIAL IV ONE (21:10)
[2021-06-07] MEDS ORDERED: NS 1,000 ML IV ONE (21:10)
[2021-06-07 21:44] LABS: BASO # 0.1 10^3/uL (0.0-0.2); BASO % 0.6 % (0.0-1.0); EOS # 0.2 10^3/uL (0.0-0.5); EOS % 1.8 % (0.0-3.0); HEMATOCRIT 33.2 % (36.0-47.0); HEMOGLOBIN 10.2 g/dl (12.0-15.5); LYMPH # 3.5 10^3/uL (1.5-5.0); LYMPH % 34.8 % (24.0-44.0); MEAN CORPUSCULAR HEMOGLOBIN 26.6 pg (27.0-33.0); MEAN CORPUSCULAR HGB CONC 30.7 g/dl (32.0-36.5); MEAN CORPUSCULAR VOLUME 86.5 fl (80.0-96.0); MONO # 0.8 10^3/uL (0.0-0.8); MONO % 8.3 % (2.0-8.0); NEUTROPHILS # 5.5 10^3/uL (1.5-8.5); NEUTROPHILS % 54.2 % (36.0-66.0); PLATELET COUNT, AUTOMATED 404 10^3/uL (150-450); RED BLOOD COUNT 3.84 10^6/uL (4.00-5.40); WHITE BLOOD COUNT 10.1 10^3/uL (4.0-10.0)
[2021-06-07 21:54] LABS: INR 1.06; PARTIAL THROMBOPLASTIN TIME 31.6 SECONDS (25.9-37.0); PROTHROMBIN TIME 14.3 SECONDS (12.7-14.5)
[2021-06-07 22:21] LABS: ALBUMIN 3.3 GM/DL (3.2-5.2); ALT/SGPT 18 U/L (12-78); BILIRUBIN,TOTAL 0.3 MG/DL (0.2-1.0); BLOOD UREA NITROGEN 8 MG/DL (7-18); CALCIUM LEVEL 8.3 MG/DL (8.5-10.1); CARBON DIOXIDE LEVEL 23 MEQ/L (21-32); CHLORIDE LEVEL 111 MEQ/L (98-107); CREATININE FOR GFR 0.75 MG/DL (0.55-1.30); GLOMERULAR FILTRATION RATE > 60.0 (>58); GLUCOSE, FASTING 71 MG/DL (70-100); POTASSIUM SERUM 4.5 MEQ/L (3.5-5.1); SODIUM LEVEL 140 MEQ/L (136-145); TOTAL PROTEIN 6.4 GM/DL (6.4-8.2)
[2021-06-07] MEDS ORDERED: fentaNYL 100 MCG/2 ML INJECTION (J3010) IV ONE (23:35)
[2021-06-07] MEDS ORDERED: HYDR-3713 PO (23:57)
[2021-06-07] MEDS ORDERED: TRAN650T PO (23:57)
[2021-06-08] MEDS ORDERED: NORCO 5/325MG TABLET (BULK FOR ED) PO ONE
== END 2021-06-08 01:07 | disposition home or self-care (01) ==
LOC: M ED 19:04
DX: N93.8 Other specified abnormal uterine and vaginal bleeding (principal); I10 Essential (primary) hypertension; E03.9 Hypothyroidism, unspecified; F33.9 Major depressive disorder, recurrent, unspecified; F41.9 Anxiety disorder, unspecified; G43.909 Migraine, unspecified, not intractable, without status migrainosus; G47.33 Obstructive sleep apnea (adult) (pediatric); Z87.442 Personal history of urinary calculi; Z79.899 Other long term (current) drug therapy; Z88.5 Allergy status to narcotic agent; Z88.8 Allergy status to other drugs, medicaments and biological substances
CPT/HCPCS: 80053; 81001; 85025; 85610; 85730; 86850; 86900; 86901; 96361; 96374; 96375; 99283; J1885; J2405; J3010

== ENCOUNTER 2021-06-26 11:41 | Day surgery (SDC) | payer OTHER ==
[~2021-06-26] VITALS: Ht 162.6 cm; Wt 85.3 kg
[~2021-06-26 11:41] MED LIST changes: +ACET-683 PO; -AMLO1TAB25; +CLON0.5T2 PO; +LIDOCAINE 1% MDV 20ML VIAL SQ PRN; +LIDOCAINE 2% 100MG/5ML SDV (FOR ANES.) As Ordered ONE; +LR 1,000 ML IV ONE; +MAGN400C2 PO; +MEDR10TA PO; +MIDAZOLAM INJ 2MG/2ML VIAL (J2250 PER 1MG) As Ordered ONE; +NAPR220C14 PO; -RIZA10TA58; +RIZA10TA58 PO; +ROCURONIUM BROMIDE 50 MG/5 ML VIAL As Ordered ONE; +TRAN650T PO; +ceFAZolin SOD 1 GM in D5W MINI-BAG PLUS 50 ML IV ONE; +fentaNYL 250 MCG/5 ML INJECTION (J3010) As Ordered ONE; +propofoL 200 MG/20 ML VIAL As Ordered ONE
[2021-06-26 12:34] LABS: HEMATOCRIT 30.5 % (36.0-47.0); HEMOGLOBIN 9.1 g/dl (12.0-15.5); MEAN CORPUSCULAR HEMOGLOBIN 25.3 pg (27.0-33.0); MEAN CORPUSCULAR HGB CONC 29.8 g/dl (32.0-36.5); MEAN CORPUSCULAR VOLUME 84.7 fl (80.0-96.0); PLATELET COUNT, AUTOMATED 375 10^3/uL (150-450); WHITE BLOOD COUNT 7.1 10^3/uL (4.0-10.0)
[2021-06-26] MEDS: BUPIVACAINE HCL 0.25% 10ML VIAL As Ordered ONE (13:44)
[2021-06-26] MEDS ORDERED: ONDANSETRON 4MG/2ML VIAL As Ordered ONE (13:51)
[2021-06-26] MEDS ORDERED: dexameTHASONE 4 MG/ML 1ML VIAL (J1100 PER 1MG) As Ordered ONE (13:51)
[2021-06-26] MEDS ORDERED: METOCLOPRAMIDE INJ 10MG/2ML VIAL (J2765 PER 1) As Ordered ONE (13:51)
[2021-06-26] MEDS ORDERED: KETOROLAC 60MG 2ML VIAL As Ordered ONE (13:51)
[2021-06-26] MEDS ORDERED: LACRILUBE (AKWA TEARS) OPHTH OINT 3.5 GM As Ordered ONE (13:52)
[2021-06-26] MEDS ORDERED: SUGAMMADEX SODIUM 500 MG/5 ML VIAL (BRIDION) As Ordered ONE (13:52)
[2021-06-26] MEDS ORDERED: ACETAMINOPHEN 1000MG 100ML IV BTL (OFIRMEV) (J0131 PER 10MG) As Ordered ONE (13:52)
--- NOTE | 2021-06-26 13:52 | ECGEPIP ---
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
[2021-06-26] MEDS ORDERED: HYDROmorphone HCL 2 MG/ML 1ML VIAL As Ordered ONE ×2 (14:12→15:26)
[2021-06-26] MEDS ORDERED: ROCURONIUM BROMIDE 50 MG/5 ML VIAL As Ordered ONE (14:14)
--- NOTE | 2021-06-26 15:00 | ROOPDOC ---
[facility] Report Of Operation Report of Operation DATE OF PROCEDURE: 06/26/21 OPERATIVE REPORT: Preoperative diagnosis: Menorrhagia, pelvic pain. Postoperative diagnosis: Same. Procedure: Robotic-assisted laparoscopic hysterectomy, bilateral salpingectomy, cystoscopy. Surgeon: Narciso Wright M.D. EBL: 50 mL's. Urine output: 200 mL's. Findings: Mildly enlarged uterus with anterior fundal fibroid. Normal ovaries and fallopian tubes. Normal upper abdomen. Operative summary: Patient was taken to the operating room where general endotracheal anesthesia was induced. She was prepped and draped in sterile fashion in the dorsal lithotomy position. A Bowers Catheter was placed. A V care uterine manipulator was placed. A Periumbilical incision was made with a scalpel. A Veress needle was placed through this incision. Intra-abdominal location of Veress needle was assessed with saline filled syringe. A pneumoperitoneum was created. The Veress needle was removed. An 8 mm trocar using the Visiport was inserted through this incision. Three 8 mm suprapubic ports were placed under direct visualization The patient was placed in Trendelenburg position. The da Arthur surgical robot was docked to the ports. Using the fenestrated bipolar instrument and vessel sealer, the utero-ovarian and broad ligaments were coagulated and incised. The round ligaments were coagulated and incised. The anterior and posterior leaves of the broad ligament were . Bladder flap was created. The uterine vessels were coagulated and incised using monopolar Endo Kary. A colpotomy was created in the upper vagina at the level of the V care Cup. The specimen including the uterus, cervix, and fallopian tubes was removed through the vagina. The vaginal cuff was closed with #1 V lock suture in running fashion. Cystoscopy was performed using a 70 cystoscope. Bilateral ureteral jets were identified. No evidence of injury to the bladder. The cystoscope was removed. All instruments removed. The skin was closed with 4-0 Monocryl subcuticular sutures. NARCISO WRIGHT MD Jun 26, 2021 15:00
[2021-06-26] MEDS ORDERED: OXYC1TAB23 PO (15:01)
[2021-06-26] MEDS ORDERED: IBUP-1022 PO (15:03)
[2021-06-26] MEDS ORDERED: fentaNYL 100 MCG/2 ML INJECTION (J3010) As Ordered ONE (15:08)
[2021-06-26] MEDS: fentaNYL 100 MCG/2 ML INJECTION (J3010) IV PRN ×2 (15:10→15:15)
[2021-06-26] MEDS: HYDROMORPHONE HCL 0.5 MG/ 0.5 ML SYRINGE (J1170 PER 1) IV PRN ×2 (15:30→15:35)
[2021-06-26] MEDS ORDERED: oxyCODONE 5MG TAB PO PRN (15:45)
[2021-06-26] MEDS ORDERED: LR 1,000 ML IV SCH ×2 (15:45→15:50)
[2021-06-26] MEDS ORDERED: ONDANSETRON 4MG/2ML VIAL IV PRN ×2 (15:45→15:50)
[2021-06-26] MEDS ORDERED: KETOROLAC 30 MG/ML 1ML VIAL IV PRN (15:50)
[2021-06-26 16:55] VITALS: BP 120/76
[2021-06-26 17:25] VITALS: BP 117/77
[2021-06-26 17:55] VITALS: BP 110/72
[2021-06-26] MEDS: PERCOCET 5MG/325MG TAB PO PRN ×2 (17:56→22:20)
[2021-06-26 18:55] VITALS: BP 110/70
[2021-06-26 20:00] VITALS: BP 108/67
[2021-06-26] MEDS ORDERED: zolPIDEM TARTRATE 5 MG TAB PO SCH (21:00)
[2021-06-26] MEDS ORDERED: MAGNESIUM OXIDE 400MG TAB (MAG-OX) PO SCH (22:05)
[2021-06-26] MEDS: DOCUSATE SODIUM 100MG CAPSULE PO SCH (22:20)
[2021-06-26 22:21] VITALS: BP 108/67
[2021-06-27] MEDS: PERCOCET 5MG/325MG TAB PO PRN ×2 (04:28→08:51)
[2021-06-27 05:58] VITALS: BP 104/64
[2021-06-27] MEDS: DOCUSATE SODIUM 100MG CAPSULE PO SCH (08:51)
[2021-06-27] MEDS ORDERED: IBUPROFEN 600MG TAB PO PRN (11:40)
--- NOTE | 2021-06-27 11:41 | IPNPDOC ---
Subjective Date Seen The patient was seen on 06/27/21. Subjective Chief Complaint/HPI Pt doing well this morning. Having some minor pain control issues but has only taken percocet once this morning. She is ambulating, voiding spontaneously, and passing gas. Objective Physical Examination General Exam: Positive: Alert, No Acute Distress Abdomen Exam: Positive: Normal bowel sounds, Soft, Tenderness (appropriately tender), Other (Incisions clean and dry) Assessment /Plan Assessment 46yo on POD#1 s/p RATLH Plan/VTE VTE Prophylaxis Ordered?: No Plan Pain controlled w/ PO medication Tolerating PO diet Voiding and ambulating without difficulty Reviewed general postoperative precautions Discharge instructions reviewed with patient plan to d/c home today with follow up in 4-6wks VS, I&O, 24H, Mame Vital Signs/I&O Vital Signs Date Time Temp Pulse Resp B/P (MAP) Pulse Ox O2 Delivery O2 Flow Rate FiO2 06/27/21 09:21 18 06/27/21 05:58 99.0 99 104/64 (77) 94 Room Air 06/26/21 17:00 2.0 I&O- Last 24 Hours up to 6 AM 06/27/21 06:00 Intake Total 1460 ml Output Total 950 ml Balance 510 ml Laboratory Data 24H LABS Laboratory Tests 2 06/26/21 12:22: Nucleated Red Blood Cells % (auto) 0.0 CBC/BMP Laboratory Tests 06/26/21 12:22 TORRI CAIN MD Jun 27, 2021 11:41
== END 2021-06-27 13:15 | disposition home or self-care (01) ==
LOC: M SDC 11:41 → M MS5PR 16:50 → M SDC 06-27 13:15
PROVIDERS: ATTEND Specialist
DX: N92.6 Irregular menstruation, unspecified (principal); E03.9 Hypothyroidism, unspecified; F43.10 Post-traumatic stress disorder, unspecified; E78.5 Hyperlipidemia, unspecified; Z88.6 Allergy status to analgesic agent; Z88.8 Allergy status to other drugs, medicaments and biological substances
CPT/HCPCS: 36415; 58552; 81025; 85027; 86850; 86900; 86901; 88307; 93005; J0131; J0690; J1100; J1170; J1885; J2250; J2405; J2765; J3010

== ENCOUNTER → 2021-11-05 | Outpatient (REF) | payer OTHER ==
[~2021-11-05] MED LIST changes: +IBUP-1022 PO; -LIDOCAINE 1% MDV 20ML VIAL SQ PRN; -LIDOCAINE 2% 100MG/5ML SDV (FOR ANES.) As Ordered ONE; +LOSA25TA13 PO; -LOSA25TA14 PO; -LR 1,000 ML IV ONE; -MIDAZOLAM INJ 2MG/2ML VIAL (J2250 PER 1MG) As Ordered ONE; +OXYC1TAB23 PO; -ROCURONIUM BROMIDE 50 MG/5 ML VIAL As Ordered ONE; -ceFAZolin SOD 1 GM in D5W MINI-BAG PLUS 50 ML IV ONE; -fentaNYL 250 MCG/5 ML INJECTION (J3010) As Ordered ONE; -propofoL 200 MG/20 ML VIAL As Ordered ONE
== END ==
LOC: M SFHCPLAZ 11:04
PROVIDERS: ATTEND Nurse Practitioner Family
DX: R05.3 Chronic cough (principal)

== ENCOUNTER 2021-11-18 18:45 | Emergency (ER) | payer OTHER ==
[~2021-11-18] VITALS: Ht 162.6 cm; Wt 95.5 kg
[2021-11-18] MEDS ORDERED: LORazepam 2 MG/ML VIAL IV STA ×2 (19:39→20:37)
[2021-11-18] MEDS ORDERED: LORazepam 2 MG/ML VIAL As Ordered ONE (19:57)
[2021-11-18 22:55] VITALS: BP 119/78
== END 2021-11-18 23:24 | disposition home or self-care (01) ==
LOC: M ED 18:45
DX: F41.0 Panic disorder [episodic paroxysmal anxiety] (principal); I10 Essential (primary) hypertension; Z88.5 Allergy status to narcotic agent; Z88.8 Allergy status to other drugs, medicaments and biological substances; Z79.899 Other long term (current) drug therapy
CPT/HCPCS: 94760; 96374; 96376; 99284; J2060

== ENCOUNTER → 2021-12-09 | Outpatient (CLI) | payer OTHER ==
[2021-12-09 17:28] LABS: BASO # 0.1 10^3/uL (0.0-0.2); BASO % 1.2 % (0.0-1.0); EOS # 0.8 10^3/uL (0.0-0.5); EOS % 9.1 % (0.0-3.0); HEMATOCRIT 42.8 % (36.0-47.0); HEMOGLOBIN 13.4 g/dl (12.0-15.5); LYMPH # 3.1 10^3/uL (1.5-5.0); MEAN CORPUSCULAR HGB CONC 31.3 g/dl (32.0-36.5); MEAN CORPUSCULAR VOLUME 86.1 fl (80.0-96.0); MONO # 0.8 10^3/uL (0.0-0.8); MONO % 8.8 % (2.0-8.0); NEUTROPHILS # 3.8 10^3/uL (1.5-8.5); NEUTROPHILS % 44.4 % (36.0-66.0); PLATELET COUNT, AUTOMATED 304 10^3/uL (150-450); RED BLOOD COUNT 4.97 10^6/uL (4.00-5.40); WHITE BLOOD COUNT 8.6 10^3/uL (4.0-10.0)
[2021-12-09 18:48] LABS: ALBUMIN 3.1 GM/DL (3.2-5.2); ALT/SGPT 26 U/L (12-78); BILIRUBIN,TOTAL 0.2 MG/DL (0.2-1.0); BLOOD UREA NITROGEN 13 MG/DL (7-18); CALCIUM LEVEL 9.2 MG/DL (8.5-10.1); CARBON DIOXIDE LEVEL 25 MEQ/L (21-32); CHLORIDE LEVEL 108 MEQ/L (98-107); CHOLESTEROL LEVEL 224 MG/DL (<200); CHOLESTEROL RISK RATIO 3.555 (<5); CREATININE FOR GFR 0.89 MG/DL (0.55-1.30); FREE T4 0.83 NG/DL (0.76-1.46); GLOMERULAR FILTRATION RATE > 60.0 (>58); GLUCOSE, FASTING 107 MG/DL (70-100); HDL CHOLESTEROL 63 MG/DL (>40); LDL CHOLESTEROL 122 MG/DL (<100); NON-HDL-C 161 MG/DL; POTASSIUM SERUM 4.1 MEQ/L (3.5-5.1); SODIUM LEVEL 139 MEQ/L (136-145); THYROID STIMULATING HORMONE 0.938 uIU/ML (0.358-3.740); TOTAL PROTEIN 6.5 GM/DL (6.4-8.2); TRIGLYCERIDES LEVEL 196 MG/DL (<150)
[2021-12-09 20:29] LABS: HEMOGLOBIN A1c 5.3 %
[2021-12-11 17:51] LABS: NT-PRO BNP 24 PG/ML (<125)
== END ==
LOC: M PLAIMG 14:28
PROVIDERS: ATTEND Nurse Practitioner Family
DX: R06.02 Shortness of breath (principal); E03.9 Hypothyroidism, unspecified; E78.5 Hyperlipidemia, unspecified; I10 Essential (primary) hypertension
CPT/HCPCS: 36415; 71046; 80053; 80061; 83036; 83880; 84439; 84443; 85025; 85379; G0463

== ENCOUNTER → 2022-03-15 | Outpatient (CLI) | payer OTHER | LOC: M WUC 15:08 | PROVIDERS: ATTEND Physician Assistant | DX: M54.2 Cervicalgia (principal) ==

== ENCOUNTER → 2022-05-12 | Outpatient (CLI) | payer OTHER ==
[2022-05-12 12:48] LABS: BASO # 0.1 10^3/uL (0.0-0.2); BASO % 0.9 % (0.0-1.0); EOS # 0.7 10^3/uL (0.0-0.5); EOS % 8.5 % (0.0-3.0); HEMOGLOBIN 15.7 g/dl (12.0-15.5); LYMPH # 2.1 10^3/uL (1.5-5.0); LYMPH % 24.1 % (24.0-44.0); MEAN CORPUSCULAR HEMOGLOBIN 30.4 pg (27.0-33.0); MEAN CORPUSCULAR VOLUME 94.8 fl (80.0-96.0); MONO # 0.7 10^3/uL (0.0-0.8); MONO % 7.7 % (2.0-8.0); NEUTROPHILS # 5.1 10^3/uL (1.5-8.5); NEUTROPHILS % 58.5 % (36.0-66.0); PLATELET COUNT, AUTOMATED 280 10^3/uL (150-450); RED BLOOD COUNT 5.17 10^6/uL (4.00-5.40); WHITE BLOOD COUNT 8.7 10^3/uL (4.0-10.0)
[2022-05-12 17:36] LABS: HEMOGLOBIN A1c 5.3 %
[2022-05-12 20:44] LABS: ALBUMIN 3.3 GM/DL (3.2-5.2); ALT/SGPT 42 U/L (12-78); BILIRUBIN,TOTAL 0.2 MG/DL (0.2-1.0); BLOOD UREA NITROGEN 13 MG/DL (7-18); CALCIUM LEVEL 9.1 MG/DL (8.5-10.1); CARBON DIOXIDE LEVEL 27 MEQ/L (21-32); CHLORIDE LEVEL 104 MEQ/L (98-107); CHOLESTEROL LEVEL 253 MG/DL (<200); CHOLESTEROL RISK RATIO 3.563 (<5); CREATININE FOR GFR 0.82 MG/DL (0.55-1.30); FREE T4 0.92 NG/DL (0.76-1.46); GLOMERULAR FILTRATION RATE > 60.0 (>58); GLUCOSE, FASTING 88 MG/DL (70-100); HDL CHOLESTEROL 71 MG/DL (>40); IRON (FE) 102 UG/DL (50-170); LDL CHOLESTEROL 155 MG/DL (<100); MAGNESIUM LEVEL 2.1 MG/DL (1.8-2.4); NON-HDL-C 182 MG/DL; POTASSIUM SERUM 4.7 MEQ/L (3.5-5.1); SODIUM LEVEL 138 MEQ/L (136-145); TOTAL PROTEIN 6.7 GM/DL (6.4-8.2); TRIGLYCERIDES LEVEL 135 MG/DL (<150); VITAMIN B12 LEVEL 436 PG/ML (247-911)
== END ==
LOC: M WUC 10:18
PROVIDERS: ATTEND Nurse Practitioner Family
DX: E03.9 Hypothyroidism, unspecified (principal); I10 Essential (primary) hypertension; E78.5 Hyperlipidemia, unspecified; D50.9 Iron deficiency anemia, unspecified; F43.10 Post-traumatic stress disorder, unspecified; G43.909 Migraine, unspecified, not intractable, without status migrainosus

== ENCOUNTER → 2022-05-31 | Outpatient (CLI) | payer OTHER ==
[2022-05-31 20:04] LABS: THYROID STIMULATING HORMONE 1.44 uIU/ML (0.358-3.740); THYROXINE (T4) 10.7 UG/DL (4.5-12.0)
[2022-05-31 20:32] LABS: ESTRADIOL 71.1 PG/ML; PROGESTERONE 0.34 NG/ML
[2022-05-31 21:14] LABS: FREE T3 2.3 PG/ML (2.2-4.0)
== END ==
LOC: M WUC 15:06
PROVIDERS: ATTEND Anesthesiology Pain Medicine
DX: R53.83 Other fatigue (principal)

== ENCOUNTER 2022-08-11 14:24 | Emergency (ER) | payer OTHER ==
[~2022-08-11] VITALS: Ht 162.6 cm; Wt 97.9 kg
[2022-08-11] MEDS ORDERED: HYDR50TA70 (14:38)
[2022-08-11] MEDS ORDERED: SENN1TAB96 (14:38)
[2022-08-11] MEDS ORDERED: VYVA50CA4 (14:38)
[2022-08-11] MEDS ORDERED: FREM225A (14:38)
[2022-08-11] MEDS ORDERED: BACL10TA2 (14:38)
[2022-08-11 18:26] VITALS: BP 144/96
== END 2022-08-11 18:28 | disposition home or self-care (01) ==
LOC: M ED 14:24
DX: R06.4 Hyperventilation (principal); R68.83 Chills (without fever); R61 Generalized hyperhidrosis; R42 Dizziness and giddiness; T48.1X5A Adverse effect of skeletal muscle relaxants [neuromuscular blocking agents], initial encounter; I10 Essential (primary) hypertension; E03.9 Hypothyroidism, unspecified; F41.9 Anxiety disorder, unspecified; F32.A Depression, unspecified; E66.9 Obesity, unspecified; Z79.899 Other long term (current) drug therapy; Z79.890 Hormone replacement therapy; Z88.5 Allergy status to narcotic agent; Z88.8 Allergy status to other drugs, medicaments and biological substances; Z87.442 Personal history of urinary calculi; Z86.69 Personal history of other diseases of the nervous system and sense organs; Z90.89 Acquired absence of other organs

== ENCOUNTER → 2022-11-18 | Outpatient (CLI) | payer OTHER ==
[~2022-11-18] MED LIST changes: +BACL10TA2; +FREM225A; +HYDR50TA70; -MEDR10TA PO; +MEDR10TA9 PO; +SENN1TAB96; +VYVA50CA4
== END ==
LOC: M PLAIMG 12:00
PROVIDERS: ATTEND Physician Assistant
DX: M25.512 Pain in left shoulder (principal); M54.2 Cervicalgia

== ENCOUNTER → 2023-05-30 | Outpatient (CLI) | payer OTHER ==
[2023-05-30 14:26] LABS: BASO # 0.1 10^3/uL (0.0-0.2); BASO % 0.7 % (0.0-1.0); EOS # 0.8 10^3/uL (0.0-0.5); EOS % 6.3 % (0.0-3.0); HEMOGLOBIN 15.5 g/dl (12.0-15.5); LYMPH # 2.4 10^3/uL (1.5-5.0); LYMPH % 20.1 % (24.0-44.0); MEAN CORPUSCULAR HEMOGLOBIN 30.9 pg (27.0-33.0); MEAN CORPUSCULAR HGB CONC 32.3 g/dl (32.0-36.5); MEAN CORPUSCULAR VOLUME 95.8 fl (80.0-96.0); MONO % 8.1 % (2.0-8.0); NEUTROPHILS # 7.8 10^3/uL (1.5-8.5); NEUTROPHILS % 64.2 % (36.0-66.0); PLATELET COUNT, AUTOMATED 376 10^3/uL (150-450); RED BLOOD COUNT 5.01 10^6/uL (4.00-5.40); WHITE BLOOD COUNT 12.2 10^3/uL (4.0-10.0)
[2023-05-30 14:50] LABS: IRON (FE) 154 UG/DL (50-170)
[2023-05-30 14:54] LABS: ALBUMIN 3.5 G/DL (3.2-5.2); ALKALINE PHOSPHATASE 112 U/L (46-116); ALT/SGPT 24 U/L (7.0-40); AST/SGOT 11 U/L (<34); BILIRUBIN,TOTAL 0.3 MG/DL (0.3-1.2); BLOOD UREA NITROGEN 12 MG/DL (9-23); CALCIUM LEVEL 9.2 MG/DL (8.5-10.1); CARBON DIOXIDE LEVEL 28 MMOL/L (20-31); CHLORIDE LEVEL 102 MMOL/L (98-107); CHOLESTEROL LEVEL 246 MG/DL (<200); CHOLESTEROL RISK RATIO 3.89 (<5); CREATININE FOR GFR 0.81 MG/DL (0.55-1.30); FREE T4 1.15 NG/DL (0.89-1.76); GLOMERULAR FILTRATION RATE > 60.0 (>51); GLUCOSE, FASTING 97 MG/DL (60-100); HDL CHOLESTEROL 63.2 MG/DL (>40); NON-HDL-C 182.8 MG/DL; SODIUM LEVEL 139 MMOL/L (136-145); THYROID STIMULATING HORMONE 0.908 uIU/ML (0.55-4.78); TOTAL 25(OH) VITAMIN D 16.2 NG/ML (20.0-100.0); TOTAL PROTEIN 7.1 G/DL (5.7-8.2); TRIGLYCERIDES LEVEL 264 MG/DL (<150)
== END ==
LOC: M PLALAB 10:42
PROVIDERS: ATTEND Nurse Practitioner Family
DX: E03.9 Hypothyroidism, unspecified (principal); E78.5 Hyperlipidemia, unspecified; D50.9 Iron deficiency anemia, unspecified; E55.9 Vitamin D deficiency, unspecified

== ENCOUNTER → 2023-08-12 | Outpatient (CLI) | payer OTHER ==
[2023-08-12 15:47] LABS: BASO # 0.1 10^3/uL (0.0-0.2); BASO % 0.6 % (0.0-1.0); EOS # 0.4 10^3/uL (0.0-0.5); EOS % 4.3 % (0.0-3.0); HEMATOCRIT 47.5 % (36.0-47.0); HEMOGLOBIN 15.9 g/dl (12.0-15.5); LYMPH # 2.5 10^3/uL (1.5-5.0); MEAN CORPUSCULAR HEMOGLOBIN 32.1 pg (27.0-33.0); MEAN CORPUSCULAR HGB CONC 33.5 g/dl (32.0-36.5); MEAN CORPUSCULAR VOLUME 95.8 fl (80.0-96.0); MONO # 0.7 10^3/uL (0.0-0.8); MONO % 6.6 % (2.0-8.0); NEUTROPHILS # 6.4 10^3/uL (1.5-8.5); NEUTROPHILS % 63.2 % (36.0-66.0); PLATELET COUNT, AUTOMATED 380 10^3/uL (150-450); RED BLOOD COUNT 4.96 10^6/uL (4.00-5.40); WHITE BLOOD COUNT 10.1 10^3/uL (4.0-10.0)
[2023-08-12 16:15] LABS: IRON (FE) 81 UG/DL (50-170); PERCENT SATURATION 27.7 % (13.2-45.0); TOTAL IRON BINDING CAPACITY 292 UG/DL (250-425)
[2023-08-12 16:18] LABS: ALBUMIN 3.6 G/DL (3.2-5.2); ALKALINE PHOSPHATASE 104 U/L (46-116); ALT/SGPT 50 U/L (7.0-40); AST/SGOT 40 U/L (<34); BILIRUBIN,TOTAL 0.3 MG/DL (0.3-1.2); BLOOD UREA NITROGEN 10 MG/DL (9-23); CALCIUM LEVEL 9.1 MG/DL (8.5-10.1); CARBON DIOXIDE LEVEL 23 MMOL/L (20-31); CHLORIDE LEVEL 104 MMOL/L (98-107); CHOLESTEROL LEVEL 198 MG/DL (<200); CHOLESTEROL RISK RATIO 3.81 (<5); CREATININE FOR GFR 0.78 MG/DL (0.55-1.30); FREE T4 1.42 NG/DL (0.89-1.76); GLOMERULAR FILTRATION RATE > 60.0 (>51); GLUCOSE, FASTING 103 MG/DL (60-100); HDL CHOLESTEROL 51.9 MG/DL (>40); LDL CHOLESTEROL 116.9 MG/DL (<100); NON-HDL-C 146.1 MG/DL; POTASSIUM SERUM 4.2 MMOL/L (3.5-5.1); SODIUM LEVEL 140 MMOL/L (136-145); THYROID STIMULATING HORMONE 0.337 uIU/ML (0.55-4.78); TOTAL 25(OH) VITAMIN D 67.2 NG/ML (20.0-100.0); TOTAL PROTEIN 6.8 G/DL (5.7-8.2); TRIGLYCERIDES LEVEL 146 MG/DL (<150)
== END ==
LOC: M WUC 14:09
PROVIDERS: ATTEND Nurse Practitioner Family
DX: E03.9 Hypothyroidism, unspecified (principal); E78.5 Hyperlipidemia, unspecified; E55.9 Vitamin D deficiency, unspecified; D50.9 Iron deficiency anemia, unspecified

== ENCOUNTER → 2023-10-10 | Outpatient (CLI) | payer OTHER ==
[2023-10-10 15:56] LABS: BASO # 0.1 10^3/uL (0.0-0.2); BASO % 0.7 % (0.0-1.0); EOS # 0.5 10^3/uL (0.0-0.5); EOS % 5.6 % (0.0-3.0); HEMATOCRIT 46.6 % (36.0-47.0); HEMOGLOBIN 15.4 g/dl (12.0-15.5); LYMPH # 2.5 10^3/uL (1.5-5.0); LYMPH % 26.3 % (24.0-44.0); MEAN CORPUSCULAR VOLUME 96.9 fl (80.0-96.0); MONO # 0.6 10^3/uL (0.0-0.8); MONO % 6.6 % (2.0-8.0); NEUTROPHILS # 5.7 10^3/uL (1.5-8.5); NEUTROPHILS % 60.5 % (36.0-66.0); PLATELET COUNT, AUTOMATED 386 10^3/uL (150-450); RED BLOOD COUNT 4.81 10^6/uL (4.00-5.40); WHITE BLOOD COUNT 9.5 10^3/uL (4.0-10.0)
[2023-10-10 16:05] LABS: THYROID STIMULATING HORMONE 0.624 uIU/ML (0.55-4.78)
[2023-10-10 16:07] LABS: FREE T4 1.13 NG/DL (0.89-1.76)
== END ==
LOC: M PLALAB 13:34
PROVIDERS: ATTEND Nurse Practitioner Family
DX: E03.9 Hypothyroidism, unspecified (principal); D75.1 Secondary polycythemia; D72.829 Elevated white blood cell count, unspecified

== ENCOUNTER → 2024-02-20 | Outpatient (CLI) | payer OTHER ==
[2024-02-20 17:32] LABS: BASO % 0.4 % (0.0-1.0); EOS # 0.3 10^3/uL (0.0-0.5); EOS % 3.3 % (0.0-3.0); HEMATOCRIT 47.8 % (36.0-47.0); HEMOGLOBIN 15.8 g/dl (12.0-15.5); LYMPH # 2.8 10^3/uL (1.5-5.0); LYMPH % 26.5 % (24.0-44.0); MEAN CORPUSCULAR HEMOGLOBIN 32.4 pg (27.0-33.0); MEAN CORPUSCULAR HGB CONC 33.1 g/dl (32.0-36.5); MONO # 0.6 10^3/uL (0.0-0.8); MONO % 5.8 % (2.0-8.0); NEUTROPHILS # 6.6 10^3/uL (1.5-8.5); NEUTROPHILS % 63.4 % (36.0-66.0); PLATELET COUNT, AUTOMATED 377 10^3/uL (150-450); RED BLOOD COUNT 4.88 10^6/uL (4.00-5.40); WHITE BLOOD COUNT 10.4 10^3/uL (4.0-10.0)
[2024-02-20 17:59] LABS: CHOLESTEROL RISK RATIO 4.49 (<5); HDL CHOLESTEROL 57.2 MG/DL (>40); LDL CHOLESTEROL 161.2 MG/DL (<100); NON-HDL-C 199.8 MG/DL
[2024-02-20 18:00] LABS: FREE T4 1.06 NG/DL (0.89-1.76); THYROID STIMULATING HORMONE 0.798 uIU/ML (0.55-4.78)
== END ==
LOC: M PLALAB 15:26
PROVIDERS: ATTEND Nurse Practitioner Family
DX: D50.9 Iron deficiency anemia, unspecified (principal); E03.9 Hypothyroidism, unspecified; E78.5 Hyperlipidemia, unspecified

== ENCOUNTER → 2024-03-14 | Outpatient (CLI) | payer OTHER ==
[~2024-03-14] MED LIST changes: +FLUO-365 PO; -FLUO20CA22 PO
[2024-03-14 19:04] LABS: BASO # 0.1 10^3/uL (0.0-0.2); BASO % 0.6 % (0.0-1.0); EOS # 0.6 10^3/uL (0.0-0.5); EOS % 3.8 % (0.0-3.0); HEMATOCRIT 48.4 % (36.0-47.0); HEMOGLOBIN 16.1 g/dl (12.0-15.5); LYMPH # 3.2 10^3/uL (1.5-5.0); LYMPH % 22.1 % (24.0-44.0); MEAN CORPUSCULAR HEMOGLOBIN 32.5 pg (27.0-33.0); MEAN CORPUSCULAR HGB CONC 33.3 g/dl (32.0-36.5); MEAN CORPUSCULAR VOLUME 97.8 fl (80.0-96.0); MONO # 0.9 10^3/uL (0.0-0.8); MONO % 6.4 % (2.0-8.0); NEUTROPHILS # 9.7 10^3/uL (1.5-8.5); NEUTROPHILS % 66.6 % (36.0-66.0); PLATELET COUNT, AUTOMATED 385 10^3/uL (150-450); RED BLOOD COUNT 4.95 10^6/uL (4.00-5.40); WHITE BLOOD COUNT 14.6 10^3/uL (4.0-10.0)
[2024-03-14 19:25] LABS: VITAMIN B12 LEVEL 536 PG/ML (211-911)
[2024-03-14 19:27] LABS: FOLATE 16.33 NG/ML (>5.4)
[2024-03-14 19:28] LABS: ALBUMIN 3.4 G/DL (3.2-5.2); ALKALINE PHOSPHATASE 106 U/L (46-116); ALT/SGPT 20 U/L (7.0-40); AST/SGOT < 8 U/L (<34); BILIRUBIN,TOTAL 0.2 MG/DL (0.3-1.2); BLOOD UREA NITROGEN 12 MG/DL (9-23); CALCIUM LEVEL 9.9 MG/DL (8.5-10.1); CARBON DIOXIDE LEVEL 28 MMOL/L (20-31); CHLORIDE LEVEL 104 MMOL/L (98-107); CREATININE FOR GFR 0.76 MG/DL (0.55-1.30); GLOMERULAR FILTRATION RATE > 60.0 (>51); GLUCOSE, FASTING 54 MG/DL (60-100); POTASSIUM SERUM 4.6 MMOL/L (3.5-5.1); SODIUM LEVEL 140 MMOL/L (136-145); TOTAL PROTEIN 6.9 G/DL (5.7-8.2)
== END ==
LOC: M PLALAB 15:58
PROVIDERS: ATTEND Nurse Practitioner Family
DX: R53.83 Other fatigue (principal); D75.89 Other specified diseases of blood and blood-forming organs; I10 Essential (primary) hypertension

== ENCOUNTER → 2024-05-15 | Outpatient (CLI) | payer OTHER ==
[~2024-05-15] MED LIST changes: +ACET-897 PO; +CYCL-707; +DEXTROAMP-AMPHETAMIN; +DIPH-435 PO; +DULO1CAP6; +FLUTISP; +TUMS500C PO; +VITA1CAP25
== END ==
LOC: M WUC 12:41
PROVIDERS: ATTEND Internal Medicine Hematology & Oncology
DX: R06.00 Dyspnea, unspecified (principal); J84.9 Interstitial pulmonary disease, unspecified

== ENCOUNTER → 2024-06-07 | Outpatient (CLI) | payer OTHER ==
[~2024-06-07] MED LIST changes: +AZO-95TA3 PO; +MENT118S2 TP
== END ==
LOC: M RAD 10:53
PROVIDERS: ATTEND Internal Medicine Hematology & Oncology
DX: D45 Polycythemia vera (principal); R10.9 Unspecified abdominal pain; K76.0 Fatty (change of) liver, not elsewhere classified; K80.20 Calculus of gallbladder without cholecystitis without obstruction; N28.9 Disorder of kidney and ureter, unspecified

== ENCOUNTER → 2024-06-08 | Outpatient (CLI) | payer OTHER ==
[~2024-06-08] MED LIST changes: -AZO-95TA3 PO; -MENT118S2 TP
== END ==
LOC: M SLEEP HO 14:25
PROVIDERS: ATTEND Nurse Practitioner Family
DX: G47.33 Obstructive sleep apnea (adult) (pediatric) (principal); R53.83 Other fatigue; R06.83 Snoring; G47.00 Insomnia, unspecified

== ENCOUNTER → 2024-06-13 | Outpatient (CLI) | payer OTHER ==
[~2024-06-13] MED LIST changes: +AZO-95TA3 PO; +MENT118S2 TP
== END ==
LOC: M CARPUL 14:19
PROVIDERS: ATTEND Internal Medicine Hematology & Oncology
DX: D72.829 Elevated white blood cell count, unspecified (principal)

== ENCOUNTER → 2024-06-20 | Outpatient (CLI) | payer OTHER ==
[~2024-06-20] MED LIST changes: +BACT800T5 PO; +GABA-1172; -GABA-282; +GASTROGRAFIN SOLUTION 30ML ONE
== END ==
LOC: M PLAIMG 07:08
PROVIDERS: ATTEND Internal Medicine Hematology & Oncology
DX: D72.829 Elevated white blood cell count, unspecified (principal); N28.1 Cyst of kidney, acquired; N83.292 Other ovarian cyst, left side

== ENCOUNTER → 2024-06-21 | Outpatient (REF) | payer OTHER ==
[~2024-06-21] MED LIST changes: -BACT800T5 PO; -GABA-1172; +GABA-282; -GASTROGRAFIN SOLUTION 30ML ONE
[2024-06-21 13:56] LABS: APPEARANCE, URINE HAZY (CLEAR); BACTERIA, URINE AUTO 3+ (NEGATIVE); BILIRUBIN, URINE AUTO NEGATIVE (NEGATIVE); BLOOD, URINE BLOOD NEGATIVE (NEGATIVE); CALCIUM OXALATE CRYSTALS SMALL; COLOR, URINE AMBER (YELLOW); GLUCOSE, URINE (UA) AUTO NEGATIVE (NEGATIVE); KETONE, URINE AUTO NEGATIVE (NEGATIVE); LEUKOCYTE ESTERASE, URINE AUTO 2+ (NEGATIVE); NITRITE, URINE AUTO POSITIVE (NEGATIVE); PROTEIN, URINE AUTO NEGATIVE (NEGATIVE); RBC, URINE AUTO 0 /HPF (0-3); SPECIFIC GRAVITY URINE AUTO 1.045 (1.002-1.035); SQUAMOUS EPITHELIAL CELL UR AU 2 /HPF (0-6); WBC, URINE AUTO 39 /HPF (0-3)
[2024-06-21 14:24] LABS: Trichomonas vaginalis (AMP) NOT DETECTED (NEGATIVE)
[2024-06-21 14:48] LABS: GC DNA AMPLIFICATION NEGATIVE (NEGATIVE)
== END ==
LOC: M PLALAB 09:22
PROVIDERS: ATTEND Advanced Practice Midwife
DX: R30.0 Dysuria (principal); Z11.3 Encounter for screening for infections with a predominantly sexual mode of transmission

== ENCOUNTER → 2024-09-03 | Outpatient (CLI) | payer OTHER ==
[~2024-09-03] MED LIST changes: +BACT800T5 PO; +GABA-1172; -GABA-282
== END ==
LOC: M WUC 15:20
PROVIDERS: ATTEND Nurse Practitioner Family
DX: M79.602 Pain in left arm (principal); W01.10XA Fall on same level from slipping, tripping and stumbling with subsequent striking against unspecified object, initial encounter

== ENCOUNTER → 2024-09-22 | Outpatient (CLI) | payer OTHER | LOC: M SLEEP 20:00 | PROVIDERS: ATTEND Physician Assistant | DX: G47.33 Obstructive sleep apnea (adult) (pediatric) (principal) ==

== ENCOUNTER → 2024-12-26 | Outpatient (CLI) | payer OTHER ==
[~2024-12-26] MED LIST changes: +PROHANCE 279.3MG/ML 15ML VIAL As Ordered ONE; +PROHANCE 279.3MG/ML 5ML VIAL As Ordered ONE
== END ==
LOC: M RAD 09:09
PROVIDERS: ATTEND Nurse Practitioner Family
DX: R90.82 White matter disease, unspecified (principal); R51.9 Headache, unspecified
CPT/HCPCS: 70553; A9576

== ENCOUNTER → 2025-01-04 | Outpatient (CLI) | payer OTHER ==
[~2025-01-04] MED LIST changes: -PROHANCE 279.3MG/ML 15ML VIAL As Ordered ONE; -PROHANCE 279.3MG/ML 5ML VIAL As Ordered ONE
[2025-01-04 15:00] LABS: BASO # 0.1 10^3/uL (0.0-0.2); BASO % 0.6 % (0.0-1.0); EOS # 0.5 10^3/uL (0.0-0.5); EOS % 4.3 % (0.0-3.0); HEMATOCRIT 46.6 % (36.0-47.0); HEMOGLOBIN 15.4 g/dl (12.0-15.5); LYMPH # 2.8 10^3/uL (1.5-5.0); LYMPH % 24.9 % (24.0-44.0); MEAN CORPUSCULAR HEMOGLOBIN 32.8 pg (27.0-33.0); MEAN CORPUSCULAR VOLUME 99.1 fl (80.0-96.0); MONO # 0.7 10^3/uL (0.0-0.8); MONO % 6.2 % (2.0-8.0); NEUTROPHILS # 7.3 10^3/uL (1.5-8.5); NEUTROPHILS % 63.6 % (36.0-66.0); PLATELET COUNT, AUTOMATED 396 10^3/uL (150-450); WHITE BLOOD COUNT 11.4 10^3/uL (4.0-10.0)
[2025-01-04 15:02] LABS: HEMOGLOBIN A1c 5.3 % (4.0-6.0)
[2025-01-04 15:17] LABS: ALBUMIN 3.4 G/DL (3.2-5.2); ALKALINE PHOSPHATASE 100 U/L (35-104); ALT/SGPT 24 U/L (7.0-40); AST/SGOT 13 U/L (<34); BILIRUBIN,TOTAL 0.3 MG/DL (0.3-1.2); BLOOD UREA NITROGEN 13 MG/DL (9-23); CALCIUM LEVEL 9.4 MG/DL (8.5-10.1); CARBON DIOXIDE LEVEL 26 MMOL/L (20-31); CHLORIDE LEVEL 106 MMOL/L (98-107); CHOLESTEROL LEVEL 230 MG/DL (<200); CHOLESTEROL RISK RATIO 4.15 (<5); CREATININE FOR GFR 0.85 MG/DL (0.55-1.30); GLOMERULAR FILTRATION RATE > 60.0 (>51); GLUCOSE, FASTING 129 MG/DL (60-100); HDL CHOLESTEROL 55.4 MG/DL (>40); IRON (FE) 63 UG/DL (50-170); LDL CHOLESTEROL 155.4 MG/DL (<100); NON-HDL-C 174.6 MG/DL; POTASSIUM SERUM 3.7 MMOL/L (3.5-5.1); SODIUM LEVEL 142 MMOL/L (136-145); TOTAL PROTEIN 6.9 G/DL (5.7-8.2); TRIGLYCERIDES LEVEL 96 MG/DL (<150)
[2025-01-04 15:18] LABS: FERRITIN 78.8 NG/ML (7.3-270.7); FREE T4 1.32 NG/DL (0.89-1.76); THYROID STIMULATING HORMONE 0.757 uIU/ML (0.55-4.78)
== END ==
LOC: M WUC 12:42
PROVIDERS: ATTEND Nurse Practitioner Family
DX: E03.9 Hypothyroidism, unspecified (principal); E55.9 Vitamin D deficiency, unspecified; E78.5 Hyperlipidemia, unspecified; D75.1 Secondary polycythemia; R73.09 Other abnormal glucose

== ENCOUNTER 2025-02-05 14:16 | Observation (INO) | payer OTHER ==
[~2025-02-05] VITALS: Ht 160 cm; Wt 86.3 kg
[~2025-02-05 14:16] MED LIST changes: -AMBI12.52 PO; -DULO1CAP6; +DULO1CAP6 PO; +MENT118S2 TOP; -MENT118S2 TP; -VITA1CAP25; +VITA1CAP25 PO; +ZOLP12.561 PO
[2025-02-05] MEDS: ACETAMINOPHEN *IV* 1,000 MG in IV 1 EA IV ONE (19:40)
[2025-02-05 20:11] LABS: VENOUS BASE EXCESS 3.5 (-2.0-2.0); VENOUS HCO3 25.6 MMOL/L (23.0-27.0); VENOUS O2 SATURATION 86.2 % (60.0-80.0); VENOUS PARTIAL PRESSURE O2 45.4 mmHg (30.0-50.0); VENOUS PH 7.521 UNITS (7.330-7.430); VENOUS STANDARD HCO3 27.2 MMOL/L; VENOUS TOTAL CO2 26.6 MMOL/L (24.0-28.0)
[2025-02-05] MEDS: MAG SULF 1GM/100ML (MAG RUN) 1 GM in IV 1 EA IV ONE (20:11)
[2025-02-05] MEDS: KETOROLAC 30 MG/ML 1ML VIAL IV ONE (20:12)
[2025-02-05] MEDS: NS (Normal Saline) 0.9% 1,000 ML IV ONE (20:13)
[2025-02-05 20:15] LABS: BASO # 0.1 10^3/uL (0.0-0.2); BASO % 0.4 % (0.0-1.0); EOS # 0.1 10^3/uL (0.0-0.5); EOS % 0.7 % (0.0-3.0); HEMATOCRIT 42.1 % (36.0-47.0); HEMOGLOBIN 14.4 g/dl (12.0-15.5); LYMPH # 3.9 10^3/uL (1.5-5.0); LYMPH % 29.1 % (24.0-44.0); MEAN CORPUSCULAR HEMOGLOBIN 32.9 pg (27.0-33.0); MEAN CORPUSCULAR HGB CONC 34.2 g/dl (32.0-36.5); MEAN CORPUSCULAR VOLUME 96.1 fl (80.0-96.0); MONO % 7.2 % (2.0-8.0); NEUTROPHILS # 8.3 10^3/uL (1.5-8.5); NEUTROPHILS % 62.2 % (36.0-66.0); PLATELET COUNT, AUTOMATED 358 10^3/uL (150-450); RED BLOOD COUNT 4.38 10^6/uL (4.00-5.40); WHITE BLOOD COUNT 13.4 10^3/uL (4.0-10.0)
[2025-02-05 20:44] LABS: BLOOD UREA NITROGEN 13 MG/DL (9-23); CALCIUM LEVEL 9.1 MG/DL (8.5-10.1); CARBON DIOXIDE LEVEL 24 MMOL/L (20-31); CHLORIDE LEVEL 108 MMOL/L (98-107); CREATININE FOR GFR 0.79 MG/DL (0.55-1.30); GLOMERULAR FILTRATION RATE > 90.0 (>51); GLUCOSE, FASTING 80 MG/DL (60-100); MAGNESIUM LEVEL 2.1 MG/DL (1.8-2.4); POTASSIUM SERUM 3.5 MMOL/L (3.5-5.1); SODIUM LEVEL 144 MMOL/L (136-145)
[2025-02-05 20:46] LABS: FREE T4 1.48 NG/DL (0.89-1.76)
[2025-02-05 23:53] LABS: KETONE, URINE AUTO RFX 1+ mg/dL (NEGATIVE); LEUKOCYTE ESTERASE UR AUTO RFX NEGATIVE (NEGATIVE); MUCUS, URINE RFX SMALL (NEGATIVE); NITRITE, URINE AUTO RFX NEGATIVE (NEGATIVE); RBC, URINE AUTO RFX 49 /HPF (0-3); SQUAM EPITHELIAL CELL UR AURFX 5 /HPF (0-6); WBC, URINE AUTO RFX 2 /HPF (0-3)
[2025-02-06] MEDS ORDERED: ACETAMINOPHEN 325 MG TAB PO PRN (04:40)
[2025-02-06 05:21] LABS: HEMATOCRIT 44.2 % (36.0-47.0); HEMOGLOBIN 14.8 g/dl (12.0-15.5); MEAN CORPUSCULAR HEMOGLOBIN 32.4 pg (27.0-33.0); MEAN CORPUSCULAR HGB CONC 33.5 g/dl (32.0-36.5); MEAN CORPUSCULAR VOLUME 96.7 fl (80.0-96.0); PLATELET COUNT, AUTOMATED 349 10^3/uL (150-450); RED BLOOD COUNT 4.57 10^6/uL (4.00-5.40); WHITE BLOOD COUNT 9.4 10^3/uL (4.0-10.0)
[2025-02-06 05:52] LABS: BLOOD UREA NITROGEN 13 MG/DL (9-23); CALCIUM LEVEL 8.8 MG/DL (8.5-10.1); CARBON DIOXIDE LEVEL 23 MMOL/L (20-31); CHLORIDE LEVEL 109 MMOL/L (98-107); CREATININE FOR GFR 0.68 MG/DL (0.55-1.30); GLOMERULAR FILTRATION RATE > 90.0 (>51); GLUCOSE, FASTING 127 MG/DL (60-100); MAGNESIUM LEVEL 2.2 MG/DL (1.8-2.4); POTASSIUM SERUM 3.8 MMOL/L (3.5-5.1); SODIUM LEVEL 144 MMOL/L (136-145)
[2025-02-06 06:45] VITALS: BP 153/96; TEMP 97.4; O2SAT 98
[2025-02-06] MEDS: ENOXAPARIN 40MG/0.4ML SYRINGE (J1650 PER 10MG) SC SCH (09:00)
[2025-02-06] MEDS ORDERED: ATOG60TA PO (09:33)
[2025-02-06] MEDS ORDERED: ALLE10TA62 PO (09:33)
[2025-02-06] MEDS ORDERED: FLUT15.820 NARES (09:33)
[2025-02-06] MEDS ORDERED: LORA1TAB23 PO (09:33)
[2025-02-06] MEDS ORDERED: LISD60CA PO (09:33)
[2025-02-06] MEDS ORDERED: HOME MED LIST COMPLETE! XX SCH (09:35)
[2025-02-06] MEDS ORDERED: PROG1CAP8 PO (09:35)
[2025-02-06] MEDS: LORazepam 1 MG TAB PO PRN (11:34)
[2025-02-10 16:02] LABS: COPPER PLASMA 121 mcg/dL (70-175)
[2025-02-13 10:53] LABS: VITAMIN B1 LEVEL WHOLE BLOOD 156 nmol/L (78-185)
== END 2025-02-06 12:00 | disposition home or self-care (01) ==
LOC: M ED 14:16 → M ED INP 14:17
PROVIDERS: ADMIT Family Medicine; ATTEND Family Medicine
DX: R42 Dizziness and giddiness (principal); R53.1 Weakness; R20.0 Anesthesia of skin; F43.10 Post-traumatic stress disorder, unspecified; F41.8 Other specified anxiety disorders; F90.9 Attention-deficit hyperactivity disorder, unspecified type; F39 Unspecified mood [affective] disorder; G43.909 Migraine, unspecified, not intractable, without status migrainosus; I10 Essential (primary) hypertension; E03.9 Hypothyroidism, unspecified; Z63.79 Other stressful life events affecting family and household; E55.9 Vitamin D deficiency, unspecified; R26.81 Unsteadiness on feet; R29.5 Transient paralysis; E87.3 Alkalosis; F41.0 Panic disorder [episodic paroxysmal anxiety]; Z87.820 Personal history of traumatic brain injury; Z98.891 History of uterine scar from previous surgery; Z87.442 Personal history of urinary calculi; Z96.0 Presence of urogenital implants; Z90.89 Acquired absence of other organs; Z90.79 Acquired absence of other genital organ(s); Z88.5 Allergy status to narcotic agent; Z88.8 Allergy status to other drugs, medicaments and biological substances; Z79.899 Other long term (current) drug therapy; Z79.890 Hormone replacement therapy
CPT/HCPCS: 36415; 70450; 70551; 71045; 72141; 80048; 81001; 82525; 82607; 82803; 83735; 84425; 84439; 84443; 85025; 85027; 87486; 87581; 87633; 87798; 93005; 96374; 96375; 97116; 97161; 99285; J1100; J1885; J3475

== ENCOUNTER → 2025-02-14 | Outpatient (CLI) | payer OTHER ==
[~2025-02-14] MED LIST changes: +ALLE10TA62 PO; +ATOG60TA PO; +FLUT15.820 NARES; +LISD60CA PO; +LORA1TAB23 PO; +PROG1CAP8 PO
[2025-02-14 13:41] LABS: BASO # 0.1 10^3/uL (0.0-0.2); BASO % 0.7 % (0.0-1.0); EOS # 0.3 10^3/uL (0.0-0.5); EOS % 2.5 % (0.0-3.0); HEMATOCRIT 48.7 % (36.0-47.0); HEMOGLOBIN 16.4 g/dl (12.0-15.5); LYMPH # 2.6 10^3/uL (1.5-5.0); LYMPH % 21.3 % (24.0-44.0); MEAN CORPUSCULAR HEMOGLOBIN 33.8 pg (27.0-33.0); MEAN CORPUSCULAR HGB CONC 33.7 g/dl (32.0-36.5); MEAN CORPUSCULAR VOLUME 100.4 fl (80.0-96.0); MONO # 0.8 10^3/uL (0.0-0.8); MONO % 6.7 % (2.0-8.0); NEUTROPHILS # 8.3 10^3/uL (1.5-8.5); PLATELET COUNT, AUTOMATED 422 10^3/uL (150-450); RED BLOOD COUNT 4.85 10^6/uL (4.00-5.40); WHITE BLOOD COUNT 12.3 10^3/uL (4.0-10.0)
[2025-02-14 14:11] LABS: ALBUMIN 3.6 G/DL (3.2-5.2); ALKALINE PHOSPHATASE 102 U/L (35-104); ALT/SGPT 22 U/L (7.0-40); AST/SGOT 12 U/L (<34); BILIRUBIN,TOTAL 0.3 MG/DL (0.3-1.2); BLOOD UREA NITROGEN 13 MG/DL (9-23); CALCIUM LEVEL 9.4 MG/DL (8.5-10.1); CARBON DIOXIDE LEVEL 30 MMOL/L (20-31); CHLORIDE LEVEL 102 MMOL/L (98-107); CREATININE FOR GFR 0.71 MG/DL (0.55-1.30); GLOMERULAR FILTRATION RATE > 90.0 (>51); GLUCOSE, FASTING 89 MG/DL (60-100); MAGNESIUM LEVEL 2.1 MG/DL (1.8-2.4); POTASSIUM SERUM 4.1 MMOL/L (3.5-5.1); SODIUM LEVEL 144 MMOL/L (136-145); TOTAL PROTEIN 6.9 G/DL (5.7-8.2)
[2025-02-14 14:16] LABS: FREE T4 1.38 NG/DL (0.89-1.76); VITAMIN B12 LEVEL 387 PG/ML (211-911)
[2025-02-14 14:17] LABS: THYROID STIMULATING HORMONE 0.619 uIU/ML (0.55-4.78)
== END ==
LOC: M WUC 10:55
PROVIDERS: ATTEND Nurse Practitioner Family
DX: I10 Essential (primary) hypertension (principal); E03.9 Hypothyroidism, unspecified; G43.909 Migraine, unspecified, not intractable, without status migrainosus

== ENCOUNTER → 2025-05-17 | Outpatient (CLI) | payer OTHER ==
[2025-05-17 18:12] LABS: BASO # 0.1 10^3/uL (0.0-0.2); BASO % 0.8 % (0.0-1.0); EOS # 0.4 10^3/uL (0.0-0.5); EOS % 3.5 % (0.0-3.0); LYMPH # 2.4 10^3/uL (1.5-5.0); LYMPH % 22.0 % (24.0-44.0); MONO # 0.7 10^3/uL (0.0-0.8); MONO % 6.2 % (2.0-8.0); NEUTROPHILS # 7.4 10^3/uL (1.5-8.5); NEUTROPHILS % 67.1 % (36.0-66.0); PLATELET COUNT, AUTOMATED 384 10^3/uL (150-450)
[2025-05-17 18:16] LABS: ALT/SGPT 18.0 U/L (7.0-40); AST/SGOT 15.0 U/L (<34); CALCIUM LEVEL 9.5 MG/DL (8.5-10.1); CARBON DIOXIDE LEVEL 28.0 MMOL/L (20-31); CHLORIDE LEVEL 105.0 MMOL/L (98-107); CREATININE FOR GFR 0.91 MG/DL (0.55-1.30); GLOMERULAR FILTRATION RATE 75.9 (>51); POTASSIUM SERUM 4.0 MMOL/L (3.5-5.1); SODIUM LEVEL 143.0 MMOL/L (136-145)
== END ==
LOC: M WUC 15:06
PROVIDERS: ATTEND Internal Medicine Hematology & Oncology
DX: D75.1 Secondary polycythemia (principal)

== ENCOUNTER → 2025-08-08 | Outpatient (CLI) | payer OTHER ==
[~2025-08-08] MED LIST changes: -IBUP-1022 PO; +IBUP600T42 PO; +LIDOCAINE 1% MDV 20 ML VIAL SC SCH; -ZOLP5TAB PO; +ZOLP5TAB9 PO
[2025-08-08 13:00] VITALS: TEMP 98.5
[2025-08-08 13:51] LABS: BASO # 0.1 10^3/uL (0.0-0.2); BASO % 0.5 % (0.0-1.0); EOS # 0.7 10^3/uL (0.0-0.5); EOS % 7.0 % (0.0-3.0); LYMPH # 2.5 10^3/uL (1.5-5.0); LYMPH % 25.2 % (24.0-44.0); MONO # 0.7 10^3/uL (0.0-0.8); MONO % 6.6 % (2.0-8.0); NEUTROPHILS # 6.0 10^3/uL (1.5-8.5); NEUTROPHILS % 60.5 % (36.0-66.0); PLATELET COUNT, AUTOMATED 340 10^3/uL (150-450)
[2025-08-08 14:05] VITALS: BP 122/72; O2SAT 98
== END ==
LOC: M IRPRO 12:44
DX: D72.829 Elevated white blood cell count, unspecified (principal)